=== PATIENT | female | born 1985 | race Caucasian/White ===

== ENCOUNTER 2018-03-09 11:16 | Emergency (ER) | payer OTHER ==
--- OUTSIDE RECORDS SUMMARY | 2018-03-09 11:18 | XMS REPORT ---
:1985 Author Organization eClinicalWorks Care Team Providers Name Role Phone Ro Kelly Provider Role Unavailable Allergies, Adverse Reactions, Alerts Substance Reaction Event Type Rocephin anaphylaxis Drug Allergy Problems Problem Type Condition Code Onset Dates Condition Status Problem Cough R05 Active Assessment Post depression F53 Active Problem Post depression F53 Active Medications Medication Code Code Instructions Start End Status Dosage System Date Date Zoloft NDC 0 Active not defined Sertraline HCl [facility] [id number] 100 MG Orally January 28, Active 1 tablet Once a day 2017 Results No Known Results Summary Purpose eClinicalWorks Submission
[2018-03-09] MEDS ORDERED: NA CHLORIDE 0.9% 1,000 ML ONE (14:01)
[2018-03-09 14:20] LABS: Absolute Lymphocytes (CBC) 1.9 K/uL (0.7-4.9); Absolute Monocytes 0.5 K/uL (0.1-1.3); Absolute Neutrophil 4.8 K/uL (1.8-8.0); Basophils % 0.5 % (0-1.3); Eosinophils % 2.5 % (0-4.4); Hematocrit 33.3 % (36.0-45.0); Lymphocytes % 25.9 % (15.3-44.8); MCH 28.3 pg (27.0-35.0); MPV 8.9 fL (7.6-11.3); Monocytes % 7.4 % (3.3-12.3); RBC Red Blood Cell Count 3.92 M/uL (3.86-4.86)
[2018-03-09 14:24] LABS: Bicarbonate 28 mEq/L (21-31); Glucose Level 92 mg/dL (65-120); Potassium 3.6 mEq/L (3.6-5.0); Sodium Level 135 mEq/L (135-145)
[2018-03-09 14:25] LABS: BUN Blood Urea Nitrogen 8 mg/dL (6-20)
--- NOTE | 2018-03-09 15:20 | RAD REPORT ---
EXAM DESCRIPTION: US - Transvaginal Study Probe - 03/09/2018 2:13 pm CLINICAL HISTORY: Recent miscarriage, continued vaginal bleeding COMPARISON: None. TECHNIQUE: Endovaginal sonography was performed. FINDINGS: No left ovarian or adnexal suspicious findings. Right ovary not clearly defined. No right adnexal mass. No blood or free fluid in the cul-de-sac. Uterus is 8.8 x 5.1 x 5.0 cm. Hemorrhagic material is present within the cervix and lower uterine seg ment. No focal endometrial finding to suspect retained products of conception. IMPRESSION: Hemorrhagic material in the lower uterus is identifiable. Retained products of conceptio n are not suspected. No suspicious adnexal finding.
--- NOTE | 2018-03-09 16:18 | EDPHYS ---
Physician Documentation [facility] Name: Diana Siddiqi Age: 33 yrs Sex: Female : 1985 Arrival Date: 03/09/2018 Time: 11:19 Bed 24 Private MD: Melida Kelly ED Physician Jose R Ma HPI: 03/09 13:52 This 33 yrs old Female presents to ER via Ambulatory with complaints of brisa Vaginal Bleeding. 13:52 This 33 yrs old Female presents to ER via Ambulatory with complaints of brisa Vaginal Bleeding. 13:52 The patient presents with vaginal bleeding that is. Onset: The symptoms/episode brisa began/occurred 3 day(s) ago. Modifying factors: The symptoms are alleviated by nothing, the symptoms are aggravated by nothing. Associated signs and symptoms: The patient has no apparent associated signs or symptoms. Severity of symptoms: At their worst the symptoms were mild, moderate, in the emergency department the symptoms are unchanged. The patient is sexually active. The patient has experienced similar episodes in the past, a few times. 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 - Social history:: Smoking status: Patient/guardian denies using tobacco. - Ebola Screening: : No symptoms or risks identified at this time. - Family history:: not pertinent. ROS: 13:54 Constitutional: Negative for fever, chills, and weight loss, Eyes: Negative for injury, brisa pain, redness, and discharge, ENT: Negative for injury, pain, and discharge, Neck: Negative for injury, pain, and swelling, Cardiovascular: Negative for chest pain, palpitations, and edema, Respiratory: Negative for shortness of breath, cough, wheezing, and pleuritic chest pain, Abdomen/GI: Negative for abdominal pain, nausea, vomiting, diarrhea, and constipation, Back: Negative for injury and pain, MS/Extremity: Negative for injury and deformity, Skin: Negative for injury, rash, and discoloration, Neuro: Negative for headache, weakness, numbness, tingling, and seizure, Psych: Negative for depression, anxiety, suicide ideation, homicidal ideation, and hallucinations, Allergy/Immunology: Negative for hives, rash, and allergies, Endocrine: Negative for neck swelling, polydipsia, polyuria, polyphagia, and marked weight changes, Hematologic/Lymphatic: Negative for swollen nodes, abnormal bleeding, and unusual bruising. 13:54 : Positive for pelvic pain, vaginal bleeding. Exam: 13:54 Constitutional: This is a well developed, well nourished patient who is awake, alert, brisa and in no acute distress. Head/Face: Normocephalic, atraumatic. Eyes: Pupils equal round and reactive to light, extra-ocular motions intact. Lids and lashes normal. Conjunctiva and sclera are non-icteric and not injected. Cornea within normal limits. Periorbital areas with no swelling, redness, or edema. ENT: Nares patent. No nasal discharge, no septal abnormalities noted. Tympanic membranes are normal and external auditory canals are clear. Oropharynx with no redness, swelling, or masses, exudates, or evidence of obstruction, uvula midline. Mucous membranes moist. Neck: Trachea midline, no thyromegaly or masses palpated, and no cervical lymphadenopathy. Supple, full range of motion without nuchal rigidity, or vertebral point tenderness. No Meningismus. Chest/axilla: Normal chest wall appearance and motion. Nontender with no deformity. No lesions are appreciated. Cardiovascular: Regular rate and rhythm with a normal S1 and S2. No gallops, murmurs, or rubs. Normal PMI, no JVD. No pulse deficits. Respiratory: Lungs have equal breath sounds bilaterally, clear to auscultation and percussion. No rales, rhonchi or wheezes noted. No increased work of breathing, no retractions or nasal flaring. Abdomen/GI: Soft, non-tender, with normal bowel sounds. No distension or tympany. No guarding or rebound. No evidence of tenderness throughout. Back: No spinal tenderness. No costovertebral tenderness. Full range of motion. Female : Normal external genitalia. Skin: Warm, dry with normal turgor. Normal color with no rashes, no lesions, and no evidence of cellulitis. MS/ Extremity: Pulses equal, no cyanosis. Neurovascular intact. Full, normal range of motion. Neuro: Awake and alert, GCS 15, oriented to person, place, time, and situation. Cranial nerves II-XII grossly intact. Motor strength 5/5 in all extremities. Sensory grossly intact. Cerebellar exam normal. Normal gait. Psych: Awake, alert, with orientation to person, place and time. Behavior, mood, and affect are within normal limits. Vital Signs: 11:37 BP 116 / 80; Pulse 88; Resp 16; Temp 99.2; Pulse Ox 100% ; Pain 3/10; hb 13:45 BP 113 / 67; Pulse 72; Resp 16; Pulse Ox 100% on R/A; kr2 16:26 BP 110 / 68; Pulse 80; Resp 16; Pulse Ox 100% on R/A; kr2 MDM: 13:20 Patient medically screened. [facility] 13:55 Data reviewed: vital signs, nurses notes, lab test result(s), radiologic studies, brisa ultrasound. 03/09 13:52 Order name: Quantitative Hcg; Complete Time: 16:10 [facility] 03/09 13:52 Order name: Abo/rh Typing; Complete Time: 16:10 [facility] 03/09 13:52 Order name: Basic Metabolic Panel; Complete Time: 16:10 [facility] 03/09 13:52 Order name: CBC with Diff; Complete Time: 16:10 [facility] 03/09 16:24 Order name: Urine Dipstick--Ancillary (enter results) 03/09 16:24 Order name: Urine --Ancillary (enter results) 03/09 13:52 Order name: Urine Test (obtain specimen); Complete Time: 14:08 [facility] 03/09 13:52 Order name: IV Saline Lock; Complete Time: 14:08 [facility] 03/09 13:52 Order name: Labs collected and sent; Complete Time: 14:08 [facility] 03/09 13:52 Order name: NPO; Complete Time: 14:08 [facility] 03/09 13:52 Order name: Urine Dipstick-Ancillary (obtain specimen); Complete Time: 14:08 [facility] 03/09 13:52 Order name: US Transvaginal Study (Probe); Complete Time: 16:10 [facility] Administered Medications: 14:24 Drug: NS 0.9% 1000 ml Route: IV; Rate: 1 bolus; Site: right antecubital; kr2 16:27 Follow up: Response: No adverse reaction; IV Status: Completed infusion kr2 Disposition: 03/09/18 16:18 Discharged to Home. Impression: Threatened . - Condition is Stable. - Discharge Instructions: Threatened Miscarriage, Threatened Miscarriage, [id number], Pelvic Rest. - Prescriptions for Vitamin 27- 0.8 mg Oral Tablet - take 1 tablet by ORAL route once daily; 30 tablet. - Medication Reconciliation Form, Thank You Letter, Antibiotic Education, Prescription Opioid Use form. - Follow up: Private Physician; When: 2 - 3 days; Reason: Recheck today's complaints, Continuance of care, Re-evaluation by your physician. Follow up: Macy Prince MD; When: 1 - 2 days; Reason: Recheck today's complaints, Continuance of care, Re-evaluation by your physician. - Problem is new. - Symptoms have improved. Signatures: Dispatcher [employer] EDMS Jose R Ma MD MD cha Baxter, Heather, RN RN Joseline Haile RN RN kr2 Corrections: (The following items were deleted from the chart) 16:28 16:18 03/09/2018 16:18 Discharged to Home. Impression: Threatened . Condition kr2 is Stable. Forms are Medication Reconciliation Form, Thank You Letter, Antibiotic Education, Prescription Opioid Use. Follow up: Private Physician; When: 2 - 3 days; Reason: Recheck today's complaints, Continuance of care, Re-evaluation by your physician. Follow up: Macy Prince; When: 1 - 2 days; Reason: Recheck today's complaints, Continuance of care, Re-evaluation by your physician. Problem is new. Symptoms have improved. brisa
--- NOTE | 2018-03-09 16:18 | ER ---
Nurse's Notes [facility] Name: Diana Siddiqi Age: 33 yrs Sex: Female : 1985 Arrival Date: 03/09/2018 Time: 11:19 Bed 24 Private MD: Melida Kelly Diagnosis: Threatened Presentation: 03/09 11:35 Presenting complaint: Patient states: I had a miscarriage a week ago, but the last 3 hb days the bleeding has become heavy and bright red with large clots. Transition of care: patient was not received from another setting of care. Onset of symptoms is unknown. Risk Assessment: Do you want to hurt yourself or someone else? Patient reports no desire to harm self or others. Care prior to arrival: None. 11:35 Method Of Arrival: Ambulatory hb 11:35 Acuity: SEAN 3 hb 14:12 Initial Sepsis Screen: Does the patient meet any 2 criteria? No. Patient's initial kr2 sepsis screen is negative. Does the patient have a suspected source of infection? No. Patient's initial sepsis screen is negative. 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 - Social history:: Smoking status: Patient/guardian denies using tobacco. - Ebola Screening: : No symptoms or risks identified at this time. - Family history:: not pertinent. Screenin:10 Abuse screen: Denies threats or abuse. Denies injuries from another. Nutritional kr2 screening: No deficits noted. Tuberculosis screening: No symptoms or risk factors identified. Fall Risk None identified. Assessment: 13:20 General: Appears in no apparent distress. comfortable, well groomed, well developed, kr2 well nourished, Behavior is calm, cooperative, appropriate for age. Pain: Denies pain. Neuro: Level of Consciousness is awake, alert, obeys commands, Oriented to person, place, time, situation, Appropriate for age. Cardiovascular: Capillary refill < 3 seconds in bilateral fingers Patient's skin is warm and dry. Respiratory: Airway is patent. GI: Abdomen is flat, non-distended. : Urine is clear, Reports vaginal bleeding that is bright red, heavy flow. EENT: Oral mucosa is moist. Derm: Skin is intact, is healthy with good turgor, Skin is pink, warm \T\ dry. Musculoskeletal: Circulation, motion, and sensation intact. 14:30 Reassessment: Patient appears in no apparent distress at this time. Patient and/or kr2 family updated on plan of care and expected duration. Pain level reassessed. Patient is alert, oriented x 3, equal unlabored respirations, skin warm/dry/pink. Patient denies pain at this time. 15:30 Reassessment: Patient appears in no apparent distress at this time. Patient and/or kr2 family updated on plan of care and expected duration. Pain level reassessed. Patient is alert, oriented x 3, equal unlabored respirations, skin warm/dry/pink. Patient denies pain at this time. 16:26 Reassessment: Patient appears in no apparent distress at this time. Patient and/or kr2 family updated on plan of care and expected duration. Pain level reassessed. Patient is alert, oriented x 3, equal unlabored respirations, skin warm/dry/pink. Patient denies pain at this time. Vital Signs: 11:37 BP 116 / 80; Pulse 88; Resp 16; Temp 99.2; Pulse Ox 100% ; Pain 3/10; hb 13:45 BP 113 / 67; Pulse 72; Resp 16; Pulse Ox 100% on R/A; kr2 16:26 BP 110 / 68; Pulse 80; Resp 16; Pulse Ox 100% on R/A; kr2 ED Course: 11:19 Patient arrived in ED. as 11:19 Melida Kelly is Private Physician. as 11:37 Triage completed. hb 11:38 Arm band placed on left wrist. hb 13:19 Joseline Haile, DANIELLA is Primary Nurse. kr2 13:20 Jose R Ma MD is Attending Physician. brisa 13:45 Patient has correct armband on for positive identification. Bed in low position. Call kr2 light in reach. Side rails up X 1. Pulse ox on. NIBP on. Door closed. Head of bed elevated. 14:00 Inserted saline lock: 22 gauge in right antecubital area, using aseptic technique. kr2 Blood collected. 14:12 No provider procedures requiring assistance completed. kr2 14:13 US Transvaginal Study (Probe) In Process Unspecified. EDTX 16:16 Macy Pirnce MD is Referral Physician. [facility] 16:27 IV discontinued, intact, bleeding controlled, No redness/swelling at site. Pressure kr2 dressing applied. Administered Medications: 14:24 Drug: NS 0.9% 1000 ml Route: IV; Rate: 1 bolus; Site: right antecubital; kr2 16:27 Follow up: Response: No adverse reaction; IV Status: Completed infusion kr2 Outcome: 16:18 Discharge ordered by . [facility] 16:26 Discharged to home ambulatory. kr2 16:26 Condition: good 16:26 Discharge instructions given to patient, Instructed on discharge instructions, follow up and referral plans. medication usage, Demonstrated understanding of instructions, follow-up care, medications, Prescriptions given X 1. 16:28 Patient left the ED. kr2 Signatures: Dispatcher [employer] EDTX Jose R Ma MD MD cha Martinez, Amelia as Luzma Wu RN RN Joseline Haile, DANIELLA RN kr2 Corrections: (The following items were deleted from the chart) 11:37 11:37 BP 116 / 80; Pulse 88bpm; Resp 16bpm; Pulse Ox 100%; Temp 99.2F; hb hb
[2018-03-09 16:26] LABS: Urine Blood 2+ (NEG); Urine Glucose NEGATIVE (NEG); Urine Protein 1+ (NEG); Urine Specific Gravity 1.025 (1.005-1.030); Urine pH 6.5 (5.0-7.0)
[2018-03-09 17:45] VITALS: TEMP 99.2; O2SAT 100
[2018-03-09 17:47] VITALS: BP 110/68
== END 2018-03-09 16:28 | disposition home or self-care (01) ==
LOC: ER 11:16
DX: O20.0 Threatened abortion (principal); Z88.8 Allergy status to other drugs, medicaments and biological substances
CPT/HCPCS: 36415; 76830; 80048; 81003; 81025; 84702; 85025; 86900; 86901; 96360; 96361; 99284; J7030

== ENCOUNTER 2018-03-10 15:49 | Emergency (ER) | payer OTHER ==
--- OUTSIDE RECORDS SUMMARY | 2018-03-10 15:51 | XMS REPORT ---
[...] NDC 0 Active not defined Sertraline HCl [facility] [id number] 100 MG Orally January 28, Active 1 tablet Once a day 2017 Results No Known Results Summary Purpose eClinicalWorks Submission
[2018-03-10] MEDS ORDERED: MORPHINE 4 MG/ML SYR ONE (17:09)
[2018-03-10] MEDS ORDERED: ONDANSETRON 4 MG/2 ML VIAL ONE (17:09)
[2018-03-10 17:28] LABS: Urine Blood 3+ (NEG); Urine Glucose NEGATIVE (NEG); Urine Protein 1+ (NEG); Urine Specific Gravity 1.025 (1.005-1.030); Urine pH 5.5 (5.0-7.0)
--- NOTE | 2018-03-10 17:45 | RAD REPORT ---
EXAM DESCRIPTION: US - Transvaginal Study Probe - 03/10/2018 5:19 pm CLINICAL HISTORY: Pelvic pain status post miscarriage approximately 1 week ago COMPARISON: March 09, 2018 ultrasound FINDINGS: The endometrium is not well delineated but measures approximately 10 millimeters. It conta ins heterogeneous material which extends into the cervical canal. The material does not demonstrate v ascular flow . The absence of blood flow does not exclude retained products of conception The ovaries are normal in size and echotexture. No significant free fluid is seen. IMPRESSION: The endometrium measures approximately 10 millimeters and contains heterogeneous materia l. This may all represent blood. However, retained products of conception can also have this appearan ce
[2018-03-10 17:59] LABS: Absolute Lymphocytes (CBC) 1.3 K/uL (0.7-4.9); Absolute Monocytes 0.7 K/uL (0.1-1.3); Absolute Neutrophil 13.3 K/uL (1.8-8.0); Basophils % 0.2 % (0-1.3); Hematocrit 31.6 % (36.0-45.0); Lymphocytes % 8.4 % (15.3-44.8); MCH 27.7 pg (27.0-35.0); MPV 9.3 fL (7.6-11.3); Monocytes % 4.2 % (3.3-12.3); RBC Red Blood Cell Count 3.72 M/uL (3.86-4.86)
[2018-03-10 18:01] LABS: Bicarbonate 26 mEq/L (21-31); Glucose Level 101 mg/dL (65-120); Potassium 3.4 mEq/L (3.6-5.0); Sodium Level 136 mEq/L (135-145)
[2018-03-10 18:02] LABS: BUN Blood Urea Nitrogen 9 mg/dL (6-20)
[2018-03-10 18:13] LABS: Urine Specific Gravity 1.025 (1.005-1.030)
[2018-03-10] MEDS ORDERED: FENTANYL CITR 100 MCG/2 ML ONE (20:02)
[2018-03-10] MEDS ORDERED: KETOROLAC 30 MG/ML INJ ONE (21:46)
--- NOTE | 2018-03-10 21:48 | EDPHYS ---
Physician Documentation [facility] Name: Diana Siddiqi Age: 33 yrs Sex: Female : 1985 Arrival Date: 03/10/2018 Time: 15:52 Bed 13 Private MD: Melida Kelly ED Physician Boaz Woods HPI: 03/10 16:46 This 33 yrs old Female presents to ER via Ambulatory with complaints of jmm Pelvic pain. 16:47 Onset: The symptoms/episode began/occurred acutely, 1 day(s) ago. Modifying factors: jmm The symptoms are alleviated by nothing, the symptoms are aggravated by nothing. Associated signs and symptoms: Pertinent positives: pelvic pain, bleeding. Patient was evaluated in the ED yesterday and diagnosed with a miscarriage. Patient complains of worsening pelvic pain and vaginal bleeding. MEDICAL RECORD CODER is Dr. Prince. 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 - Social history:: Smoking status: Patient/guardian denies using tobacco. - Ebola Screening: : No symptoms or risks identified at this time. ROS: 16:47 Constitutional: Negative for fever, chills, and weight loss, Cardiovascular: Negative jmm for chest pain, palpitations, and edema, Respiratory: Negative for shortness of breath, cough, wheezing, and pleuritic chest pain, Abdomen/GI: Negative for abdominal pain, nausea, vomiting, diarrhea, and constipation. 16:47 : Positive for pelvic pain, vaginal bleeding. 16:47 MS/extremity: Negative for pain. 16:47 Skin: Negative for rash. 16:47 All other systems are negative. Exam: 16:47 Head/Face: atraumatic. Chest/axilla: Normal chest wall appearance and motion. jmm Nontender with no deformity. No lesions are appreciated. Cardiovascular: Regular rate and rhythm. No gallops, murmurs, or rubs. Full/Equal distal pulses. Respiratory: Lungs have equal breath sounds bilaterally, clear to auscultation. No rales, rhonchi or wheezes noted. No increased work of breathing, no retractions or nasal flaring. Abdomen/GI: Soft, non-tender, with normal bowel sounds. No distension or tympany. No guarding or rebound. No evidence of tenderness throughout. 16:47 Constitutional: The patient appears alert, awake, anxious, uncomfortable. 16:47 : Pelvic Exam: External exam: is normal, Speculum exam: mild bleeding, blood clots in vaginal vault, os that is open. 16:47 Musculoskeletal/extremity: ROM: intact in all extremities. 16:47 Skin: Appearance: Color: normal in color. 16:47 Neuro: Orientation: is normal, Mentation: is normal, Memory: is normal, Gait: is steady. 16:47 Psych: Behavior/mood is pleasant, cooperative. Vital Signs: 16:01 BP 105 / 76; Pulse 101; Resp 22; Temp 98.9; Pulse Ox 99% ; Weight 79.38 kg; Height 5 sv ft. 5 in. (165.10 cm); Pain 10/10; 17:00 BP 115 / 78; Pulse 91; Resp 19; Pulse Ox 100% on R/A; rb1 18:32 BP 105 / 71; Pulse 84; Resp 20; Pulse Ox 100% on R/A; mh5 19:30 BP 115 / 80; Pulse 94; Resp 17 S; Pulse Ox 100% on R/A; bs1 20:30 BP 107 / 73; Pulse 89; Resp 16; Pulse Ox 99% on R/A; bs1 21:30 BP 106 / 73; Pulse 85; Resp 17; Temp 98.1(O); Pulse Ox 99% on R/A; Pain 4/10; bs1 16:01 Body Mass Index 29.12 (79.38 kg, 165.10 cm) sv MDM: 16:44 Patient medically screened. [facility] 21:45 Data reviewed: vital signs, nurses notes, lab test result(s), radiologic studies, [facility] ultrasound. Counseling: I had a detailed discussion with the patient and/or guardian regarding: the historical points, exam findings, and any diagnostic results supporting the discharge/admit diagnosis, lab results, radiology results, the need for outpatient follow up, to return to the emergency department if symptoms worsen or persist or if there are any questions or concerns that arise at home. Response to treatment: the patient's symptoms have mildly improved after treatment. Physician consultation: Macy Prince MD and will see patient in office. 03/10 16:45 Order name: Abo/rh Typing; Complete Time: 18:43 [facility] 03/10 16:45 Order name: Basic Metabolic Panel; Complete Time: 18:43 [facility] 03/10 16:45 Order name: CBC with Diff; Complete Time: 18:43 [facility] 03/10 17:26 Order name: Urine Dipstick--Ancillary (enter results); Complete Time: 17:47 ag 03/10 17:29 Order name: Urine --Ancillary (enter results); Complete Time: 18:43 ag 03/10 18:44 Order name: HCG-Quantitative; Complete Time: 20:29 [facility] 03/10 16:45 Order name: IV Saline Lock; Complete Time: 17:41 [facility] 03/10 16:45 Order name: Labs collected and sent; Complete Time: 17:42 [facility] 03/10 16:58 Order name: Transvaginal Study Probe; Complete Time: 17:47 [facility] 03/10 16:45 Order name: NPO; Complete Time: 17:42 [facility] 03/10 16:45 Order name: Urine Dipstick-Ancillary (obtain specimen); Complete Time: 17:43 [facility] 03/10 19:12 Order name: Pelvic Exam Setup; Complete Time: 20:29 jm Administered Medications: 17:35 Drug: morphine 4 mg Route: IVP; Site: right antecubital; rb1 18:00 Follow up: Response: No adverse reaction; Pain is decreased rb1 17:35 Drug: Zofran 4 mg Route: IVP; Site: right antecubital; rb1 18:00 Follow up: Response: No adverse reaction; Nausea is decreased rb1 20:12 Drug: fentaNYL (PF) 50 mcg Route: IVP; Site: right antecubital; bs1 20:29 Follow up: Response: No adverse reaction bs1 21:46 Drug: Ketorolac 30 mg Route: IVP; Site: right antecubital; bs1 22:01 Follow up: Response: No adverse reaction bs1 Disposition: 03/10/18 21:47 Discharged to Home. Impression: Incomplete . - Condition is Stable. - Discharge Instructions: Incomplete Miscarriage. - Prescriptions for Tylenol- Codeine #3 300-30 mg Oral Tablet - take 1 tablet by ORAL route every 6 hours As needed; 12 tablet. - Medication Reconciliation Form, Thank You Letter, Antibiotic Education, Prescription Opioid Use form. - Follow up: Macy Prince MD; When: 1 - 2 days; Reason: Continuance of care, Re-evaluation by your physician. - Notes: Please follow up with your OBGYN in 1 to 2 days for reevaluation. Please return to the ED if you develop increased pain, increased bleeding, weakness, or any other concerning symptoms. Addendum: 03/12/2018 07:02 Co-signature as Attending Physician, Boaz Woods MD. r n Signatures: Dispatcher [employer] [facility] Ashley Gamble, RN RN Edy Dias PA PA jmm Nieto, Roman, MD MD rn Barber, Rebecca RN RN Shelby Balbuena RN RN bs1 Corrections: (The following items were deleted from the chart) 03/10 16:58 16:51 Pelvis Complete+US.RAD.BRZ ordered. [facility] 22:03 21:47 03/10/2018 21:47 Discharged to Home. Impression: Incomplete . Condition bs1 is Stable. Forms are Medication Reconciliation Form, Thank You Letter, Antibiotic Education, Prescription Opioid Use. Follow up: Macy Prince; When: 1 - 2 days; Reason: Continuance of care, Re-evaluation by your physician. [facility]
--- NOTE | 2018-03-10 21:48 | ER ---
Nurse's Notes [facility] Name: Diana Siddiqi Age: 33 yrs Sex: Female : 1985 Arrival Date: 03/10/2018 Time: 15:52 Bed 13 Private MD: Melida Kelly Diagnosis: Incomplete Presentation: 03/10 15:59 Presenting complaint: Patient states: RLQ pain about an hour ago. c/o sv nausea/diaphoresis. Transition of care: patient was not received from another setting of care. Onset of symptoms was March 10, 2018. Care prior to arrival: None. 15:59 Method Of Arrival: Ambulatory sv 15:59 Acuity: SEAN 3 sv 16:01 Note Pt stated once in the exam room that she had a miscarriage on Friday and has had sv vaginal bleeding. Pt was seen here. 16:05 Risk Assessment: Do you want to hurt yourself or someone else? Patient reports no rb1 desire to harm self or others. Initial Sepsis Screen: Does the patient meet any 2 criteria? No. Patient's initial sepsis screen is negative. Does the patient have a suspected source of infection? No. Patient's initial sepsis screen is negative. 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 - Social history:: Smoking status: Patient/guardian denies using tobacco. - Ebola Screening: : No symptoms or risks identified at this time. Screenin:05 Abuse screen: Denies threats or abuse. Nutritional screening: No deficits noted. rb1 Tuberculosis screening: No symptoms or risk factors identified. Fall Risk None identified. Assessment: 16:05 General: Appears uncomfortable, Behavior is calm, cooperative, Denies fever. Pain: rb1 Complains of pain in abdomen Pain currently is 10 out of 10 on a pain scale. Neuro: Level of Consciousness is awake, alert, obeys commands, Oriented to person, place, time, situation. Cardiovascular: Capillary refill < 3 seconds is brisk in bilateral fingers. Respiratory: Airway is patent Respiratory effort is even, unlabored, Respiratory pattern is regular, symmetrical. GI: No signs and/or symptoms were reported involving the gastrointestinal system. : Reports vaginal bleeding that is bright red. Derm: Skin is pink, warm \T\ dry. 17:00 Reassessment: Patient appears in no apparent distress at this time. No changes from rb1 previously documented assessment. 18:00 Reassessment: Patient appears in no apparent distress at this time. Patient and/or rb1 family updated on plan of care and expected duration. Pain level reassessed. Patient is alert, oriented x 3, equal unlabored respirations, skin warm/dry/pink. Patient states symptoms have improved. 19:06 Reassessment: Report received from DANIELLA Banuelos. bs1 19:06 General: Appears uncomfortable, Behavior is cooperative, anxious. Pain: Complains of bs1 pain in abdomen. Neuro: Level of Consciousness is awake, alert, obeys commands, Oriented to person, place, time, situation, Appropriate for age. Cardiovascular: Denies chest pain, shortness of breath, Heart tones S1 S2 present Capillary refill < 3 seconds is brisk in bilateral fingers toes Patient's skin is warm and dry. Respiratory: Airway is patent Trachea midline Respiratory effort is even, unlabored, Respiratory pattern is regular, symmetrical, Breath sounds are clear bilaterally. GI: Abdomen is round Bowel sounds present X 4 quads. Reports lower abdominal pain, upper abdominal pain, nausea, Patient currently denies bloody stool. : Reports vaginal bleeding that is bright red. Derm: Skin is intact, Skin is pink, warm \T\ dry. 20:45 Reassessment: No changes from previously documented assessment. Patient and/or family bs1 updated on plan of care and expected duration. Pain level reassessed. Patient is alert, oriented x 3, equal unlabored respirations, skin warm/dry/pink. 22:00 Reassessment: Patient appears in no apparent distress at this time. Patient and/or bs1 family updated on plan of care and expected duration. Pain level reassessed. Patient is alert, oriented x 3, equal unlabored respirations, skin warm/dry/pink. Patient states feeling better. Vital Signs: 16:01 BP 105 / 76; Pulse 101; Resp 22; Temp 98.9; Pulse Ox 99% ; Weight 79.38 kg; Height 5 sv ft. 5 in. (165.10 cm); Pain 10/10; 17:00 BP 115 / 78; Pulse 91; Resp 19; Pulse Ox 100% on R/A; rb1 18:32 BP 105 / 71; Pulse 84; Resp 20; Pulse Ox 100% on R/A; mh5 19:30 BP 115 / 80; Pulse 94; Resp 17 S; Pulse Ox 100% on R/A; bs1 20:30 BP 107 / 73; Pulse 89; Resp 16; Pulse Ox 99% on R/A; bs1 21:30 BP 106 / 73; Pulse 85; Resp 17; Temp 98.1(O); Pulse Ox 99% on R/A; Pain 4/10; bs1 16:01 Body Mass Index 29.12 (79.38 kg, 165.10 cm) sv ED Course: 15:52 Patient arrived in ED. mr 15:52 Kimberley Kellya is Private Physician. mr 15:59 Triage completed. sv 16:00 Arm band placed on right wrist. sv 16:05 Patient has correct armband on for positive identification. Bed in low position. Call rb1 light in reach. Side rails up X 1. Pulse ox on. NIBP on. Warm blanket given. 16:19 Lakisha Grier, DANIELLA is Primary Nurse. rb1 16:27 Edy Valero PA is PHCP. [facility] 16:27 Boaz Woods MD is Attending Physician. [facility] 17:19 Transvaginal Study Probe In Process Unspecified. EDMS 17:35 Inserted saline lock: 22 gauge in right antecubital area, using aseptic technique. rb1 Blood collected. 19:00 Report given to DANIELLA Ryan. rb1 20:00 Assist provider with pelvic exam: Set up pelvic tray. Performed by Edy CLAUDIO bs1 Patient tolerated well. 20:00 IV discontinued, bleeding controlled, No redness/swelling at site. Pressure dressing bs1 applied. 21:17 called and connected with SHANON Snow for pt consultation. eb 21:46 Macy Prince MD is Referral Physician. jmm Administered Medications: 17:35 Drug: morphine 4 mg Route: IVP; Site: right antecubital; rb1 18:00 Follow up: Response: No adverse reaction; Pain is decreased rb1 17:35 Drug: Zofran 4 mg Route: IVP; Site: right antecubital; rb1 18:00 Follow up: Response: No adverse reaction; Nausea is decreased rb1 20:12 Drug: fentaNYL (PF) 50 mcg Route: IVP; Site: right antecubital; bs1 20:29 Follow up: Response: No adverse reaction bs1 21:46 Drug: Ketorolac 30 mg Route: IVP; Site: right antecubital; bs1 22:01 Follow up: Response: No adverse reaction bs1 Outcome: 21:47 Discharge ordered by MD. mcdermott 22:00 Discharged to home ambulatory. bs1 22:00 Condition: stable 22:00 Discharge instructions given to patient, Instructed on discharge instructions, follow up and referral plans. medication usage, Demonstrated understanding of instructions, follow-up care, medications, Prescriptions given X 1. 22:03 Patient left the ED. bs1 Signatures: Dispatcher [employer] EDAshley Osman RN RN Edy Valero PA PA jmm Rivera, Maria mr Barber, Rebecca, RN RN rb1 Martinez, Maria Shelby Guadarrama RN RN bs1 Kiki Middleton
[2018-03-10 22:16] VITALS: O2SAT 99
[2018-03-10 22:17] VITALS: BP 106/73; TEMP 98.1
== END 2018-03-10 22:03 | disposition home or self-care (01) ==
LOC: ER 15:49
DX: O03.4 Incomplete spontaneous abortion without complication (principal); Z88.8 Allergy status to other drugs, medicaments and biological substances
CPT/HCPCS: 36415; 76830; 80048; 81003; 81025; 84702; 85025; 86900; 86901; 96374; 96375; 99284; J2405; J3010

== ENCOUNTER 2018-03-24 18:05 | Observation (INO) | payer BC, OTHER, SELFPAY ==
--- OUTSIDE RECORDS SUMMARY | 2018-03-24 18:07 | XMS REPORT ---
[...] NDC 0 Active not defined Sertraline HCl [facility] [id number] 100 MG Orally January 28, Active 1 tablet Once a day 2017 Results No Known Results Summary Purpose eClinicalWorks Submission
[2018-03-24] MEDS ORDERED: NA CHLORIDE 0.9% 1,000 ML ONE ×2 (18:14→19:29)
[2018-03-24 18:32] LABS: Absolute Lymphocytes (CBC) 1.6 K/uL (0.7-4.9); Absolute Monocytes 0.4 K/uL (0.1-1.3); Absolute Neutrophil 1.8 K/uL (1.8-8.0); Basophils % 0.9 % (0-1.3); Eosinophils % 3.7 % (0-4.4); Hematocrit 21.4 % (36.0-45.0); Lymphocytes % 40.1 % (15.3-44.8); MCH 26.6 pg (27.0-35.0); MCV 82.5 fL (80-100); MPV 8.7 fL (7.6-11.3); Monocytes % 9.4 % (3.3-12.3); Protime INR 1.04; RBC Red Blood Cell Count 2.59 M/uL (3.86-4.86)
[2018-03-24] MEDS ORDERED: METHYLERGONOVINE 0.2MG/ML AMP IM ONE ×2 (18:32→21:19)
[2018-03-24 18:50] LABS: Potassium 3.6 mmol/L (3.5-5.1)
--- NOTE | 2018-03-24 19:46 | RAD REPORT ---
EXAM DESCRIPTION: US - Transvaginal Study Probe - 03/24/2018 7:04 pm CLINICAL HISTORY: Vaginal bleeding, abnormal endovaginal ultrasound March 10 COMPARISON: Ultrasound March 10 TECHNIQUE: Endovaginal sonography was performed. FINDINGS: Endometrium has increased in thickness now measuring approximately 24 mm. There is heterog eneity throughout the endometrium. In the midportion of the endometrial cavity an approximately 2 mel timeter area of more hypoechoic material is present. Movement is identifiable within this area believ ed to be old hemorrhagic material. No abnormality seen that is suspected to be retained tissue. Retained placental tissue is not excluded but not suspected. Myometrium is heterogeneous but no discrete myometrial mass seen. Small cysts or follicles are seen on both ovaries. Doppler evaluation shows normal blood flow within the ovarian stroma. No suspicious adnexal finding. No abnormal fluid or blood in the cul-de-sac. IMPRESSION: Diffusely heterogeneous and thickened endometrial stripe is present. This has increased from approximately 10 mm in thickness to the current 24 mm. Hemorrhagic material is identifiable in addition to the endometrial tissue. Retained tissue is not suspected. Retained placental tissue is not suspected but not excluded. No ovarian, adnexal or cul-de-sac abnormalities.
--- NOTE | 2018-03-24 19:53 | ER ---
Nurse's Notes [facility] Name: Diana Siddiqi Age: 33 yrs Sex: Female : 1985 Arrival Date: 03/24/2018 Time: 18:09 Bed 2 Private MD: Diagnosis: Shock following incomplete spontaneous Presentation: 03/24 18:00 Presenting complaint: Patient states: Reportedly had a miscarriage 3 weeks ago and has ss intermittent vaginal bleeding since that has gotten heavier today. EMS reports that patient lost approx 1 Liter of blood in toilet just prior to arrival to patient's home. Pt has a follow up OB appointment tomorrow with Dr. Prince. Transition of care: patient was not received from another setting of care. Onset of symptoms was March 03, 2018. Risk Assessment: Do you want to hurt yourself or someone else? Patient reports no desire to harm self or others. Initial Sepsis Screen: Does the patient meet any 2 criteria? No. Patient's initial sepsis screen is negative. Does the patient have a suspected source of infection? No. Patient's initial sepsis screen is negative. Care prior to arrival: None. 18:00 Method Of Arrival: EMS: [facility] ss 18:00 Acuity: SEAN 1 ss Historical: - Allergies: 18:21 ceftriaxone; ss - PMHx: 18:21 Post depression; ss - PSHx: 18:21 ; Cholecystectomy; ss - Immunization history:: Adult Immunizations unknown. - Social history:: The patient lives at home, Smoking status: Patient/guardian denies using tobacco. - Ebola Screening: : Patient negative for fever greater than or equal to 101.5 degrees Fahrenheit, and additional compatible Ebola Virus Disease symptoms Patient denies exposure to infectious person Patient denies travel to an Ebola-affected area in the 21 days before illness onset. Screenin:10 Abuse screen: Denies threats or abuse. Denies injuries from another. Nutritional sg screening: No deficits noted. Tuberculosis screening: No symptoms or risk factors identified. Never had TB. Fall Risk None identified. Assessment: 18:10 General: Appears in no apparent distress. comfortable, well groomed, well developed, sg well nourished, Behavior is calm, cooperative, appropriate for age. Pain: Complains of pain in pelvis Quality of pain is described as aching. Neuro: No deficits noted. Cardiovascular: Heart tones S1 S2 present Capillary refill is sluggish in bilateral fingers Chest pain is denied. Respiratory: Airway is patent Respiratory effort is even, unlabored, Respiratory pattern is regular, symmetrical, Breath sounds are clear. GI: Abdomen is round non-distended. : Reports vaginal bleeding that is bright red, heavy flow since intermittent for about 3 days. EENT: No signs and/or symptoms were reported regarding the EENT system. Derm: Skin is intact, is healthy with good turgor, Skin is clammy, Skin is pale, Skin temperature is cool. Musculoskeletal: No signs and/or symptoms reported regarding the musculoskeletal system. 19:20 General: Appears in no apparent distress. uncomfortable, well groomed, well developed, ao well nourished, Behavior is calm, cooperative, flat. Pain: Denies pain. Neuro: No deficits noted. Level of Consciousness is awake, alert, obeys commands, Oriented to person, place, time, situation, Appropriate for age Speech is normal. Cardiovascular: Denies chest pain, shortness of breath, Capillary refill is sluggish in bilateral fingers Chest pain is denied. Respiratory: Airway is patent Respiratory effort is even, unlabored, Respiratory pattern is regular, symmetrical, Breath sounds are clear bilaterally. GI: Abdomen is round non-distended. : Reports vaginal bleeding that is bright red, heavy flow. EENT: No signs and/or symptoms were reported regarding the EENT system. Derm: Skin is intact, Skin is clammy, Skin is pale, Skin temperature is cool. Musculoskeletal: No signs and/or symptoms reported regarding the musculoskeletal system. Reports weakness in general. Vital Signs: 18:00 BP 108 / 66; Pulse 80; Resp 16 S; Pulse Ox 98% on R/A; sg 19:50 BP 100 / 60; Pulse 75; Resp 10; Pulse Ox 100% on R/A; Pain 0/10; ao ED Course: 18:00 Inserted saline lock: 20 gauge in left antecubital area, using aseptic technique. Blood ss collected. 18:09 Patient arrived in ED. ss 18:09 Jason Estrella MD is Attending Physician. gs 18:10 Patient has correct armband on for positive identification. Placed in gown. Bed in low sg position. Call light in reach. Side rails up X2. school lunch monitor on. Pulse ox on. NIBP on. Warm blanket given. Verbal reassurance given. Head of bed elevated. 18:19 Triage completed. ss 18:23 Brandon Vora, RN is Primary Nurse. sg 18:33 Assist provider with pelvic exam: Set up pelvic tray. Performed by Jason shaw Patient tolerated well. 19:04 US Transvaginal Study (Probe) In Process Unspecified. EDMS 19:50 Patient placed in an exam room, on a stretcher, on school lunch monitor, on pulse oximetry. ao 19:51 Macy Prince MD is Hospitalizing Provider. gs 21:40 Patient admitted, IV remains in place. ao Administered Medications: 18:14 Drug: NS 0.9% 1000 ml Route: IV; Rate: 1 bolus; Site: left antecubital; ss 22:15 Follow up: Response: No adverse reaction ao 18:37 Drug: METHERgine 0.2 mg {Note: R ventrogluteal.} Route: IM; Site: Other; sg 18:46 Follow up: Response: No adverse reaction sg 22:15 Follow up: Response: No adverse reaction ao 19:37 Drug: NS 0.9% 1000 ml Route: IV; Rate: 250 ml/hr; Site: left antecubital; ao 22:15 Follow up: IV Status: Infusion continued upon admission ao 20:55 Drug: Calcium Gluconate 1 grams Route: IVPB; Infused Over: 60 mins; Site: right forearm;ao 22:15 Follow up: IV Status: Completed infusion; IV Intake: 100ml ao Intake: 22:15 IV: 100ml; Total: 100ml. ao Outcome: 19:52 Decision to Hospitalize by Provider. gs 21:40 Admitted to OR accompanied by nurse, family with patient, via stretcher, room Patient ao to go to her room after OR, Other Report given to OR nurse, Hand off care of patient who is running blood. 21:40 Condition: stable 21:40 Instructed on the need for admit. 21:42 Patient left the ED. ao Signatures: Dispatcher [employer] EDMS Brandon Vora, Amanda Nagel RN, RN RN aj Smirch, Shelby, RN RN Eleno Thorne RN RN ao Starr, Gregory, MD MD
--- NOTE | 2018-03-24 19:53 | EDPHYS ---
Physician Documentation [facility] Name: Diana Siddiqi Age: 33 yrs Sex: Female : 1985 Arrival Date: 03/24/2018 Time: 18:09 Bed 2 Private MD: ED Physician Jason Estrella HPI: 03/24 19:09 This 33 yrs old Female presents to ER via EMS with complaints of Vaginal gs Bleeding. 19:09 The patient presents with vaginal bleeding that is heavy. Onset: The symptoms/episode gs began/occurred just prior to arrival, today, HAS BEEN DX WITH MISCARRIAGE 2 WEEKS AGO, HAS HAD VB DAILY SINCE TODAY VERY HEAVY, HYPOTENSIVE PALE. Modifying factors: The symptoms are alleviated by nothing, the symptoms are aggravated by nothing. Associated signs and symptoms: Pertinent negatives: fever. Severity of symptoms: At their worst the symptoms were severe, in the emergency department the symptoms are unchanged. The patient has not experienced similar symptoms in the past. Historical: - Allergies: 18:21 ceftriaxone; ss - PMHx: 18:21 Post depression; ss - PSHx: 18:21 ; Cholecystectomy; ss - Immunization history:: Adult Immunizations unknown. - Social history:: The patient lives at home, Smoking status: Patient/guardian denies using tobacco. - Ebola Screening: : Patient negative for fever greater than or equal to 101.5 degrees Fahrenheit, and additional compatible Ebola Virus Disease symptoms Patient denies exposure to infectious person Patient denies travel to an Ebola-affected area in the 21 days before illness onset. ROS: 19:13 All other systems are negative. gs Exam: 19:13 Head/Face: Normocephalic, atraumatic. Eyes: Pupils equal round and reactive to light, gs extra-ocular motions intact. Lids and lashes normal. Conjunctiva and sclera are non-icteric and not injected. Cornea within normal limits. Periorbital areas with no swelling, redness, or edema. ENT: Nares patent. No nasal discharge, no septal abnormalities noted. Tympanic membranes are normal and external auditory canals are clear. Oropharynx with no redness, swelling, or masses, exudates, or evidence of obstruction, uvula midline. Mucous membranes moist. Neck: Trachea midline, no thyromegaly or masses palpated, and no cervical lymphadenopathy. Supple, full range of motion without nuchal rigidity, or vertebral point tenderness. No Meningismus. Chest/axilla: Normal chest wall appearance and motion. Nontender with no deformity. No lesions are appreciated. Cardiovascular: Regular rate and rhythm with a normal S1 and S2. No gallops, murmurs, or rubs. Normal PMI, no JVD. No pulse deficits. Respiratory: Lungs have equal breath sounds bilaterally, clear to auscultation and percussion. No rales, rhonchi or wheezes noted. No increased work of breathing, no retractions or nasal flaring. 19:13 MS/ Extremity: Pulses equal, no cyanosis. Neurovascular intact. Full, normal range of motion. Neuro: Awake and alert, GCS 15, oriented to person, place, time, and situation. Cranial nerves II-XII grossly intact. Motor strength 5/5 in all extremities. Sensory grossly intact. Cerebellar exam normal. Normal gait. 19:13 Constitutional: The patient appears alert, awake. 19:13 Constitutional: The patient appears in obvious distress, severely distressed. 19:13 Abdomen/GI: Palpation: moderate abdominal tenderness, in the suprapubic area, right lower quadrant and left lower quadrant. 19:13 : Pelvic Exam: Speculum exam: moderate bleeding, os that is open, tissue in cervix is seen, the nurse was present for the exam. 19:13 Skin: Appearance: Color: pale. Vital Signs: 18:00 BP 108 / 66; Pulse 80; Resp 16 S; Pulse Ox 98% on R/A; sg 19:50 BP 100 / 60; Pulse 75; Resp 10; Pulse Ox 100% on R/A; Pain 0/10; ao MDM: 18:09 Patient medically screened. gs 19:13 Data reviewed: vital signs, nurses notes. Response to treatment: the patient's symptoms gs have markedly improved after treatment. 19:28 Differential diagnosis: threatened Ab, complete Ab, retained Ab, uterine fibroids. 19:50 Physician consultation: Macy Prince MD and will see patient in OR. 03/24 18:10 Order name: CBC with Diff; Complete Time: 18:42 03/24 18:10 Order name: Basic Metabolic Panel; Complete Time: 19:42 03/24 18:10 Order name: PT-INR; Complete Time: 18:42 03/24 18:10 Order name: HCG-Quantitative; Complete Time: 19:42 03/24 18:10 Order name: Type And Screen 03/24 19:07 Order name: Antibody Screen [facility] 03/24 18:33 Order name: US Transvaginal Study (Probe); Complete Time: 19:48 gs 03/24 19:38 Order name: Packed RBC Leukored -1 [facility] 03/24 20:03 Order name: Transfuse; Complete Time: 21:41 gs Administered Medications: 18:14 Drug: NS 0.9% 1000 ml Route: IV; Rate: 1 bolus; Site: left antecubital; ss 22:15 Follow up: Response: No adverse reaction ao 18:37 Drug: METHERgine 0.2 mg {Note: R ventrogluteal.} Route: IM; Site: Other; sg 18:46 Follow up: Response: No adverse reaction sg 22:15 Follow up: Response: No adverse reaction ao 19:37 Drug: NS 0.9% 1000 ml Route: IV; Rate: 250 ml/hr; Site: left antecubital; ao 22:15 Follow up: IV Status: Infusion continued upon admission ao 20:55 Drug: Calcium Gluconate 1 grams Route: IVPB; Infused Over: 60 mins; Site: right forearm;ao 22:15 Follow up: IV Status: Completed infusion; IV Intake: 100ml ao Disposition: 03/24/18 19:52 Hospitalization ordered by Macy Prince for Observation. Preliminary diagnosis is Shock following incomplete spontaneous . - [facility]. - Status is Observation. ao - Condition is Stable. - Problem is new. - Symptoms have improved. UTI on Admission? No Critical care time excluding procedures: 19:13 Critical care time: Bedside Care: 10 minutes, Consultation: 10 minutes, Family gs Intervention: 10 minutes. Total time: 30 minutes Signatures: Dispatcher [employer] [facility] Keturah Siddiqi RN RN mw Gay, Steven, RN RN sg Smirch, Shelby, RN RN ss Ortiz, Alex, RN RN ao Starr, Gregory, MD MD Corrections: (The following items were deleted from the chart) 19:28 19:13 : Pelvic Exam: Speculum exam: moderate bleeding, os that is open, tissue in gs cervix is seen, gs 20:42 19:52 Hospitalization Ordered by Macy Prince MD for Observation. Preliminary diagnosis mw is Shock following incomplete spontaneous . Bed requested for Telemetry/MedSurg (observation). Status is Observation. Condition is Stable. Problem is new. Symptoms have improved. UTI on Admission? No. gs 21:42 20:42 03/24/2018 19:52 Hospitalization Ordered by Macy Prince MD for Observation. ao Preliminary diagnosis is Shock following incomplete spontaneous . Bed requested for [facility]. Status is Observation. Condition is Stable. Problem is new. Symptoms have improved. UTI on Admission? No. mw
[2018-03-24] MEDS ORDERED: CALCIUM GLUCONATE 1 GM IVPB 1 GM/50 ML BAG IV ONE (20:10)
--- NOTE | 2018-03-24 20:35 | P.HP ---
Certification for Inpatient Patient admitted to: Inpatient With expected LOS: <2 Midnights Patient will require the following post-hospital care: None Practitioner: I am a practitioner with admitting privileges, knowledge of patient current condition, hospital course, and medical plan of care. Services: Services provided to patient in accordance with Admission requirements found in Title 42 Section 412.3 of the Code of Federal Regulations Patient History Date of Service: 03/24/18 Reason for admission: Miscarriage History of Present Illness: 33 y.o. presents to ED for c/o worsening VB. She was diagnosed with possible miscarriage about 2 weeks ago with spotting, had heavy bleeding last week then it stopped. However, in the last night into today, she started bleeding heavily again so she come back into the ER. She denies pain or cramping. LMP: 12/28/2017, consistent with 12w2d IUP. TVUS does not show viable fetus, but thickened endometrial stripe instead. H/H: 6.9/21.4 Allergies ceftriaxone [From Rocephin] Allergy (Verified 12/19/15 19:33) Itching/Hives/Rash Home Medications: Pnv95/Ferrous Fumarate/FA [ Vitamin Tablet] 1 tab PO DAILY 07/10/16 Codeine/APAP [Tylenol W/Codeine #3 tab] 1 tab PO Q6HP PRN #45 tab 07/12/16 - Past Medical/Surgical History Diabetic: No -: GC -: BV -: Asthma - well controlled -: Lymph nodes 2000 -: -: Laparoscopic cholecystectomy - Family History Mother Notes: flavia mason - Social History Alcohol use: No CD- Drugs: No Caffeine use: No Review of Systems 10-point ROS is otherwise unremarkable Physical Examination - Physical Exam General: In no apparent distress, Oriented x3 HEENT: Atraumatic, Normocephalic Respiratory: Other (Normal effort) Cardiovascular: Normal pulses Gastrointestinal: Soft and benign, No tenderness Musculoskeletal: No swelling, No tenderness Integumentary: No rashes, No breakdown Neurological: Normal strength at 5/5 x4 extr - Studies Laboratory Data (last 24 hrs) 03/24/18 18:00: PT 12.3, INR 1.04 03/24/18 18:00: Sodium 139, Potassium 3.6, BUN 11, Creatinine 0.80, Glucose 123 H 03/24/18 18:00: WBC 4.0 L, Hgb 6.9 L*, Hct 21.4 L, Plt Count 297 Female Exam - Female Pelvic Vagina: Other (Deferred for EUA. No on-going bleeding per ER atteding's exam) Assessment and Plan - Problems (Diagnosis) (1) Retained products of conception Current Visit: Yes Status: Acute Plan: Discussed with patient need for blood transfusion, she accepts and orders have already been placed by ER attending Dr. Estrella. We reviewed medical treatment with cytotec vs D&C. Benefits, risks, and alternatives discussed. Following review, patient prefers D&C. Orders placed for procedure and dry house wheeler notified. Anesthesia and OR team to be called. Proceed when ready. Will admit o/n after procedure for monitoring. - Advance Directives Does patient have a Living Will: No Does patient have a Durable POA for Healthcare: No
[2018-03-24] MEDS ORDERED: DOXYCYCLINE 100 MG in NA CHLORIDE 0.9% 100 ML IVPB ONE (20:43)
[2018-03-24] MEDS ORDERED: NA CHLORIDE 0.9% 250 ML ONE (20:54)
[2018-03-24] MEDS ORDERED: PROPOFOL 200 MG/20 ML VIAL IV ONE (21:15)
[2018-03-24] MEDS ORDERED: MIDAZOLAM HCL 2 MG/2 ML INJ ONE (21:15)
[2018-03-24] MEDS ORDERED: LIDOCAINE 1% MPF 5 ML VIAL ONE (21:16)
[2018-03-24] MEDS ORDERED: FENTANYL CITR 100 MCG/2 ML ONE (21:16)
[2018-03-24] MEDS ORDERED: OXYTOCIN 10 UNIT/ML ML IV ONE (21:19)
[2018-03-24] MEDS ORDERED: SILVER NITRATE 1 APPL TOP ONE ×2 (21:20→23:22)
--- OUTSIDE RECORDS SUMMARY | 2018-03-24 21:27 | XMS REPORT ---
[...] NDC 0 Active not defined Sertraline HCl [facility] [id number] 100 MG Orally January 28, Active 1 tablet Once a day 2017 Results No Known Results Summary Purpose eClinicalWorks Submission
[2018-03-24] MEDS ORDERED: CODEINE 30MG/APAP 300MG TAB PO PRN (22:24)
[2018-03-24] MEDS ORDERED: KETOROLAC 30 MG/ML INJ IV ONE (22:24)
[2018-03-24] MEDS ORDERED: ONDANSETRON 4 MG/2 ML VIAL IV PRN (22:24)
[2018-03-24] MEDS ORDERED: ACETAMINOPHEN 500 MG TAB PO PRN (22:24)
[2018-03-24] MEDS ORDERED: METOCLOPRAMIDE 10 MG/2mL INJ IV PRN (22:24)
--- NOTE | 2018-03-24 22:30 | P.OP ---
Preoperative diagnosis: Spontaneous miscarriage, Retained products of conception Postoperative diagnosis: Same Primary procedure: Suction D&C Anesthesia: General with LMA Estimated blood loss: 100 cc Specimen: POC Findings: See operative report Operative Technique: FINDINGS: On bimanual exam, the patient has approximately 11-week anteverted, mobile uterus with visually dilated cervix. Few blood clots noted in the vagina. There was a moderate amount of tissue obtained on the procedure. PROCEDURE: The patient was taken to the operating room where a general anesthetic was administered. She was then positioned in the dorsal lithotomy position and prepped and draped in the normal sterile fashion. Once the anesthetic was found to be adequate, a bimanual exam was performed under anesthetic. Next, a Ocampo and right angle retractor were placed in the vagina to bring the cervix into view. The anterior lip of cervix was grasped with the tenaculum and due to the patient already being dilated approximately 2 cm, no cervical dilation was needed. A size 8 straight suction curette was used and connected to suction. It was gently advanced in the cervix and a suction curettage was performed. Two passes were made with the suction curettage. Next, a sharp curettage was performed obtaining a small amount of tissue and this was followed by third suction curettage and then a final sharp curettage was performed, which revealed a good uterine cry on all sides of the uterus. After the procedure, the tenaculum was removed. Tenaculum sites were oozing and hemostasis was achieved with pressure and use of silver nitrate. Excellent hemostasis was noted. The retractors were removed. The patient was given 0.25 mg of Methergine IM before the procedure. After the procedure, a second bimanual exam was performed and the patient's uterus had significantly decreased in size. The patient was taken from the operating room in stable condition after she was cleaned. She tolerated procedure well and there were no complications. She will be admitted to observation overnight. She was given antibiotics for prophylaxis. Complications: None Transferred to: Recovery Room Condition: Good
[2018-03-24] MEDS ORDERED: NA CHLORIDE 0.9% 1,000 ML IV SCH (23:00)
[2018-03-24] MEDS ORDERED: miSOPROStol 100 MCG TAB PO SCH (23:00)
[2018-03-24 23:03] VITALS: O2SAT 97
[2018-03-25 01:44] VITALS: BMI 28.8
[2018-03-25] MEDS ORDERED: DIPHENHYDRAMINE 50 MG/ML VIAL IV PRN (02:29)
[2018-03-25 05:03] LABS: Hematocrit 25.9 % (36.0-45.0); MCH 28.1 pg (27.0-35.0); MCV 82.1 fL (80-100); MPV 8.7 fL (7.6-11.3); RBC Red Blood Cell Count 3.15 M/uL (3.86-4.86)
[2018-03-25 06:02] LABS: BUN Blood Urea Nitrogen 6 mg/dL (7-18); Bicarbonate 23 mmol/L (21-32); Glucose Level 84 mg/dL (74-106); Potassium 3.7 mmol/L (3.5-5.1); Sodium Level 142 mmol/L (136-145)
[2018-03-25 06:20] LABS: Protime INR 1.06
[2018-03-25 07:45] LABS: Absolute Lymphocytes (CBC) 1.7 K/uL (0.7-4.9); Absolute Monocytes 0.4 K/uL (0.1-1.3); Absolute Neutrophil 3.9 K/uL (1.8-8.0); Basophils % 0.4 % (0-1.3); Eosinophils % 1.7 % (0-4.4); Hematocrit 26.6 % (36.0-45.0); Lymphocytes % 27.6 % (15.3-44.8); MCH 27.4 pg (27.0-35.0); MCV 84.4 fL (80-100); MPV 8.8 fL (7.6-11.3); Monocytes % 6.3 % (3.3-12.3); RBC Red Blood Cell Count 3.15 M/uL (3.86-4.86)
[2018-03-25] MEDS ORDERED: DOXYCYCLINE 100 MG in NA CHLORIDE 0.9% 100 ML IVPB ONE (08:00)
--- NOTE | 2018-03-25 09:25 | EKG ---
Test Date: 2018-03-24 Test Time: 21:28:00 Business And Financial Counsel: KALI MEASUREMENT RESULTS: Intervals: Rate: 80 CT: 146 QRSD: 76 QT: 374 QTc: 431 [place]: P: 52 CT: 146 QRS: 22 T: 34 INTERPRETIVE STATEMENTS: Normal sinus rhythm Low voltage QRS Borderline ECG Compared to ECG 12/20/2015 07:04:19 Sinus arrhythmia no longer present Electronically Signed On 03-25-18 09:24:28 CDT by Giovani Joya
--- NOTE | 2018-03-25 14:18 | P.PN ---
Subjective Date of Service: 03/25/18 Chief Complaint: Miscarriage Subjective: Tolerating diet, Ambulating, Improving (Denies VB or pain. Having normal spontaneous voids and feels well while ambulatory. Denies N?V), Doing well Review of Systems 10-point ROS is otherwise unremarkable Physical Examination - Vital Signs Temperature: 98.6 F Blood Pressure: 109/61 Pulse: 83 Respirations: 20 - Physical Exam General: Alert, In no apparent distress, Oriented x3 Respiratory: Clear to auscultation bilaterally, Normal air movement Cardiovascular: Normal pulses, Regular rate/rhythm, Normal S1 S2 Gastrointestinal: Normal bowel sounds, Soft and benign, No tenderness Musculoskeletal: No swelling, No tenderness Integumentary: No rashes, No breakdown Neurological: Normal speech, Normal strength at 5/5 x4 extr - Studies Laboratory Data (last 24 hrs) 03/24/18 18:00: PT 12.3, INR 1.04 03/24/18 18:00: Sodium 139, Potassium 3.6, BUN 11, Creatinine 0.80, Glucose 123 H 03/24/18 18:00: WBC 4.0 L, Hgb 6.9 L*, Hct 21.4 L, Plt Count 297 Assessment And Plan - Current Problems (Diagnosis) (1) Retained products of conception Onset Date: 03/25/18 Current Visit: Yes Status: Acute Plan: S/p suction D&C (2) S/P dilation and curettage Onset Date: 03/25/18 Current Visit: Yes Status: Acute Plan: Doing well on postop day 1. Vitals reviewed, BP on low side but her pulse is normal. Repeat H&H x2 his improved and stable. Will repeat labs this afternoon and if continued to be improved and stable, will discharge home this evening. Discharge instructions reviewed with patient in detail. She verbalized understanding agreed and is to follow up in the office in 1 week.
[2018-03-25 15:28] LABS: BUN Blood Urea Nitrogen 7 mg/dL (7-18); Bicarbonate 26 mmol/L (21-32); Glucose Level 85 mg/dL (74-106); Potassium 4.2 mmol/L (3.5-5.1); Sodium Level 141 mmol/L (136-145)
[2018-03-25 15:48] LABS: Absolute Monocytes 0.4 K/uL (0.1-1.3); Absolute Neutrophil 4.1 K/uL (1.8-8.0); Basophils % 0.7 % (0-1.3); Eosinophils % 2.8 % (0-4.4); Hematocrit 27.3 % (36.0-45.0); Lymphocytes % 17.6 % (15.3-44.8); MCH 26.8 pg (27.0-35.0); MCV 84.1 fL (80-100); MPV 9.3 fL (7.6-11.3); RBC Red Blood Cell Count 3.24 M/uL (3.86-4.86)
[2018-03-25 16:31] VITALS: BP 110/68; TEMP 98.4
== END 2018-03-25 16:44 | disposition home or self-care (01) ==
LOC: ER 18:05 → UNDOADMOB 19:55 → ERHOLD 19:55 → OR 21:24 → 2ND-WC 22:30 → OR 03-25 02:37 → 2ND-WCNRSY 03-25 02:37 → 2ND-WC 03-25 02:38
PROVIDERS: ADMIT Obstetrics & Gynecology; ATTEND Obstetrics & Gynecology
PROC: 10D17Z9 Manual Extraction of Products of Conception, Retained, Via Natural or Artificial Opening (ICD-10-PCS; 2018-03-24)
PROC: 30233N1 Transfusion of Nonautologous Red Blood Cells into Peripheral Vein, Percutaneous Approach (ICD-10-PCS; principal; 2018-03-25)
DX: O03.4 Incomplete spontaneous abortion without complication (principal)
CPT/HCPCS: 36415; 36430; 76830; 80048; 84702; 85025; 85027; 85610; 85730; 86850; 86900; 86901; 88305; 93005; 96361; 96365; 96372; 99291; 99292; J0610; J2210; J2250; J2590; J3010; J7030; P9016

== ENCOUNTER 2022-12-05 18:21 | Inpatient (IN) | payer OTHER, SELFPAY ==
--- OUTSIDE RECORDS SUMMARY | 2022-12-05 18:24 | XMS REPORT | Continuity of Care Document ---
:1985 Author Organization [facility] t Address [address] [place] [address] [place] [id number] Care Team Providers Name Role Phone Unavailable Unavailable Unavailable Problems Condition Condition Condition Status Onset Resolution Last Treating Co mments Source Name Details Category Date Date Treatment Clinician Date Cough Cough Problem Active Common [facility] History of History of Problem Active C ommon recurrent recurrent Spir it miscarriag miscarriag - [facility] es es [facility] Miscarriag Miscarriag Problem Active C ommon e e [facility] Uses Uses Problem Active C ommon control control [facility] Encounter Encounter Problem Active 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 - [facility] Johnna kes kosta pills kosta pills [facility] Reactive Reactive Problem Active Commo n depression depression Sp brina [facility] Seasonal Seasonal Problem Active Commo n allergic allergic Spirit rhinitis rhinitis - [facility] due to due to St pollen pollen [facility] Body mass Body mass Problem Active Com mon index index Spirit (BMI) of (BMI) of - [facility] 31.0-31.9 31.0-31.9 St in adult in adult [facility] Other Other Problem Active Common obesity obesity Spirit due to due to - [facility] excess excess St calories calories [facility] Well woman Well woman Problem Active C ommon exam with exam with Spir it routine routine - [facility] gynecologi gynecologi St ivon exam ivon exam [facility] Allergies, Adverse Reactions, Alerts Allergy Allergy Status Severity Reaction(s) Onset Inactive Treating Comm ents Source Name Type Date Date Clinician Rocephin Adverse Active anaphylaxis Co mmon Reaction [facility] Medications Ordered Filled Start Stop Current Ordering Indication Dosage Frequency Signature Comments Components Source Medication Medication Date Date Medication? Clinician (SIG) Name Name Sertraline Sertraline Yes Ro Sevier 1 tablet Common HCl HCl [facility] Procedures This patient has no known procedures. Encounters Start End Encounter Admission Attending Care Care Encounter Source Date/Time Date/Time Type Type Clinicians Facility Department ID 2019-01-25 2019-01-25 Outpatient Kathy Herrera [id number] Common 09:21:00 09:21:00 t [facility] it [facility] 2018-10-06 2018-10-06 Outpatient Kathy Chavezt [id number] Common 10:30:00 10:30:00 [facility] 2018-06-17 2018-06-17 Outpatient Kathy Chavezt [id number] Common 13:15:00 13:15:00 [facility] 2018-04-03 2018-04-03 Outpatient Kathy Chavezt [id number] Common 09:00:00 09:00:00 [facility] - I [facility] 2018-01-28 2018-01-28 Outpatient Kathy Chavezt [id number] Common 10:30:00 10:30:00 t [facility] it [facility] Results This patient has no known results.
[2022-12-05] MEDS ORDERED: ONDANSETRON 4 MG (ODT) TAB ONE (18:47)
--- NOTE | 2022-12-05 20:29 | RAD REPORT ---
EXAM DESCRIPTION: RAD - Chest Single View - 12/05/2022 8:06 pm CLINICAL HISTORY: FEVER Chest pain. COMPARISON: CHEST SINGLE VIEW dated 12/19/2015; CHEST SINGLE VIEW dated 11/27/2015 FINDINGS: Portable technique limits examination quality. A few mild linear opacities are seen in the left lung which may represent infection. The lungs are ot herwise clear. The heart is normal in size. No displaced fractures.
[2022-12-05] MEDS ORDERED: NA CHLORIDE 0.9% 1,000 ML ONE ×2 (20:41→22:09)
[2022-12-05] MEDS ORDERED: ONDANSETRON 4 MG/2 ML VIAL ONE ×2 (20:41→22:32)
[2022-12-05] MEDS ORDERED: FAMOTIDINE 20 MG/2 ML VIAL IV ONE (20:41)
[2022-12-05 21:02] LABS: Absolute Lymphocytes (CBC) 0.2 K/uL (0.7-4.9); Lymphocytes % 3.6 % (15.3-44.8); MCV 82.4 fL (80-100); MPV 9.1 fL (7.6-11.3); RBC Red Blood Cell Count 5.33 M/uL (3.86-4.86)
[2022-12-05 21:04] LABS: Protime INR 1.29
[2022-12-05 21:07] LABS: Urine Blood Trace-intact (Negative); Urine Glucose Trace (Negative); Urine Protein 3+ (Negative); Urine Specific Gravity >=1.030 (1.005-1.030); Urine pH 5.5 (5.0-7.0)
[2022-12-05 21:18] LABS: Albumin 3.7 g/dL (3.4-5.0); Bilirubin Total 2.3 mg/dL (0.2-1.0); Potassium 3.8 mmol/L (3.5-5.1); Protein, Total 8.5 g/dL (6.4-8.2)
[2022-12-05 21:20] LABS: Urine Specific Gravity/Preg >1.030 (1.005-1.030)
[2022-12-05 21:36] LABS: SARS-COV-2 RT PCR NEGATIVE (NEGATIVE)
[2022-12-05 21:57] LABS: Urine Bacteria None Seen /HPF (<20); Urine Mucus 4+ /HPF (None Seen)
--- NOTE | 2022-12-05 22:19 | RAD REPORT ---
EXAM DESCRIPTION: CT - Chest Abdomen Pelvis W Cont - 12/05/2022 10:06 pm CLINICAL HISTORY: Chest and abdomen pain. FEVER COMPARISON: ABDOMINAL EXAM LIMITED dated 12/19/2015; CTANGIO CHEST FOR PE dated 12/19/2015 TECHNIQUE: Approximately 100 mL nonionic IV contrast was administered to the patient. All CT scans are performed using dose optimization technique as appropriate and may include automated exposure control or mA/KV adjustment according to patient size. FINDINGS: Mild linear atelectasis is present both lung bases.No focal infiltrate typical of pneumoni a.No pleural or pericardial effusion.Mildly prominent nonspecific mediastinal lymph nodes, right keven tracheal region measuring to 13 mm, precarinal location measuring up to 14 mm.Cholecystectomy clips. The liver, spleen, pancreas, adrenal glands and right kidney are within normal limits. Several stones are present left kidney without hydronephrosis. No bowel obstruction, free air, intra-abdominal free fluid or abscess. Normal appendix. Small volume of pelvic free fluid, likely physiologic. No pathologic lymphadenopathy in the abdomen or pelvis. No worrisome osseous finding. IMPRESSION: Mildly prominent mediastinal lymph nodes are nonspecific but favored to be reactive.Cons ider imaging reassessment in 6-12 months. Left-sided renal stones without hydronephrosis.
[2022-12-06] MEDS ORDERED: NA CHLORIDE 0.9% 500 ML ONE (00:17)
--- NOTE | 2022-12-06 00:38 | P.HP ---
Certification for Inpatient Patient admitted to: Observation With expected LOS: <2 Midnights Patient will require the following post-hospital care: None Practitioner: I am a practitioner with admitting privileges, knowledge of patient current condition, hospital course, and medical plan of care. Services: Services provided to patient in accordance with Admission requirements found in Title 42 Section 412.3 of the Code of Federal Regulations Patient History Date of Service: 12/06/22 Reason for admission: Dehydration, TA, Intractable N/V/D History of Present Illness: Patient is a 37 year old female who presented to the emergency department with complaints of abdominal pain, nausea, vomiting, diarrhea, and fever x 6 days. Patient states that she went camping with her family last weekend. She also states that she recently interacted with some "dirty" water in a drain/gutter at a fire station. No one else in her family has been experiencing the same symptoms. She has been tachycardic and febrile in the ED despite IV hydration with tmax in ED of 101.4F. CT abdomen pelvis showed "Mildly prominent mediastinal lymph nodes are nonspecific but favored to be reactive. Consider imaging reassessment in 6-12 months. Left-sided renal stones without hydronephrosis." Labs are significant for sodium 129, chloride 96, BUN 19, creatinine 1.37, lactate 2.3, T. bili 2.3, AST 257, ALT 210, alk phos 212, urine with 2+ ketones, 4+ mucus, and 3+ protein. In the emergency department, she was treated with Tylenol, 2 L of fluid, IV Cipro and Flagyl. Patient is admitted for further management. Allergies ceftriaxone [From Rocephin] Allergy (Verified 12/19/15 19:33) Itching/Hives/Rash Home Medications: Sertraline HCl 100 mg PO DAILY 03/25/18 - Past Medical/Surgical History Diabetic: No -: Asthma -: Laparoscopic cholecystectomy -: x2 Psychosocial/ Personal History: Patient lives at home with her children. - Family History Family History: Reviewed- Non-Contributory - Family History Mother -: Other (see notes) Notes: ALS - Social History Smoking Status: Never smoker Alcohol use: No CD- Drugs: No Caffeine use: No Place of Residence: Home Review of Systems Gastrointestinal: Nausea, Vomiting, Abdominal Pain, Diarrhea Physical Examination - Physical Exam General: Alert, In no apparent distress HEENT: Atraumatic, EOMI, Sclerae nonicteric Neck: Supple, 2+ carotid pulse no bruit Respiratory: Clear to auscultation bilaterally, Normal air movement Cardiovascular: Regular rate/rhythm, Normal S1 S2 Gastrointestinal: Normal bowel sounds, No tenderness Musculoskeletal: No tenderness Integumentary: No rashes Neurological: Normal speech, Normal affect - Studies Laboratory Data (last 24 hrs) 12/05/22 20:30: PT 14.2 H, INR 1.29 12/05/22 20:30: Sodium 129 L, Potassium 3.8, BUN 19 H, Creatinine 1.37 H, Glucose 122 H, Total Bilirubin 2.3 H, AST 257 H, ALT 210 H, Alkaline Phosphatase 212 H 12/05/22 20:30: WBC 4.90, Hgb 15.2 H, Hct 44.0, Plt Count 170 Assessment and Plan - Problems (Diagnosis) (1) Sepsis Current Visit: Yes Status: Acute Qualifiers: Sepsis type: sepsis due to unspecified organism Sepsis acute organ dysfunction status: with acute organ dysfunction Severe sepsis acute organ dysfunction type: acute liver failure Hepatic coma status: without hepatic coma Severe sepsis shock status: without septic shock Qualified Code(s): A41.9 - Sepsis, unspecified organism; R65.20 - Severe sepsis without septic sh ock; K72.00 - Acute and subacute hepatic failure without coma (2) Dehydration Current Visit: Yes Status: Acute (3) TA (acute kidney injury) Current Visit: Yes Status: Acute (4) Traveler's diarrhea Current Visit: Yes Status: Acute - Plan Patient is admitted for further management of dehydration, TA, intractable n/v/d. Symptoms likely secondary to some form of traveler's diarrhea/contaminated water source. Patient denies drinking any water while camping but was exposed to some murky drain water at a fire station. Meeting severe sepsis criteria without septic shock with tachycardia, fever, tbili > 2, lactate > 2. BP stable. Continue aggressive IV hydration & cipro/flagyl. Stool cultures & blood cultures have been sent. Check hepatitis panel given elevated LFTs. Patient had cholecystectomy in 2016. Will also check CRP. Supportive measures with antiemetics as antipyretics. Monitor and replete electrolytes per protocol. Discharge Plan: Home Plan to discharge in: 24 Hours - Advance Directives Does patient have a Living Will: No Does patient have a Durable POA for Healthcare: No - Code Status/Comfort Care Code Status Assessed: Yes Code Status: Full Code Physician Review: Patient Assessed, Agree with Above Assessment and Plan Critical Care: No Time Spent Managing Pts Care (In Minutes): 50
[2022-12-06] MEDS ORDERED: METRONIDAZOLE 500mg IVPB 500 MG/100 ML BAG IV ONE ×2 (01:05→08:20)
[2022-12-06] MEDS ORDERED: IBUPROFEN 400 MG TAB ONE (01:05)
[2022-12-06] MEDS ORDERED: CIPROFLOXACIN 400mg IV 400 MG/200 ML BAG IV ONE ×2 (01:05→08:20)
[2022-12-06] MEDS ORDERED: LOPERAMIDE HCL 2 MG CAPSULE ONE (01:30)
[2022-12-06] MEDS: NA CHLORIDE 0.9% 1,000 ML IV SCH ×3 (01:49→20:37)
[2022-12-06] MEDS ORDERED: NA CHLORIDE 0.9% 1,000 ML ONE ×2 (01:58→11:37)
[2022-12-06 04:03] VITALS: BMI 29.1
[2022-12-06 04:28] LABS: Hepatitis B Core IgM Nonreactive (Nonreactive); Hepatitis B surface AG Interp. Nonreactive (Nonreactive); Hepatitis C Virus Ab Nonreactive (Nonreactive)
[2022-12-06 05:33] LABS: Absolute Lymphocytes (CBC) 0.2 K/uL (0.7-4.9); Hematocrit 35.9 % (36.0-45.0); Lymphocytes % 5.3 % (15.3-44.8); MCV 82.9 fL (80-100); MPV 9.2 fL (7.6-11.3); RBC Red Blood Cell Count 4.32 M/uL (3.86-4.86)
[2022-12-06 05:51] LABS: Albumin 2.6 g/dL (3.4-5.0); Bilirubin Total 2.2 mg/dL (0.2-1.0); Phosphorus 2.5 mg/dL (2.5-4.9); Potassium 3.6 mmol/L (3.5-5.1)
[2022-12-06] MEDS ORDERED: INFLUENZA VACCINE (for 6+ mo) 0.5 ML DOSE IMVAC ONE (08:00)
[2022-12-06] MEDS: CIPROFLOXACIN 400mg IV 400 MG/200 ML BAG IV SCH ×2 (08:22→20:37)
[2022-12-06] MEDS: METRONIDAZOLE 500mg IVPB 500 MG/100 ML BAG IV SCH ×2 (08:23→17:12)
[2022-12-06] MEDS: ONDANSETRON 4 MG/2 ML VIAL IV PRN (10:52)
[2022-12-06] MEDS ORDERED: ONDANSETRON 4 MG/2 ML VIAL ONE (10:55)
--- NOTE | 2022-12-06 16:53 | P.PN ---
Date of Service: 12/06/22 Patient states she feels better. She stated diarrhea frequency has reduced. No abdominal pain currently. Renal function is trending down. Plan: Continue current antibiotics Follow stool studies. Continue IV fluid.
[2022-12-06] MEDS: ACETAMINOPHEN 500 MG TAB PO PRN (20:38)
[2022-12-07] MEDS: METRONIDAZOLE 500mg IVPB 500 MG/100 ML BAG IV SCH ×3 (01:00→16:36)
[2022-12-07] MEDS: ONDANSETRON 4 MG/2 ML VIAL IV PRN ×2 (04:45→21:06)
[2022-12-07 04:48] LABS: Absolute Lymphocytes (CBC) 0.2 K/uL (0.7-4.9); Hematocrit 33.7 % (36.0-45.0); Lymphocytes % 13.6 % (15.3-44.8); MCV 82.1 fL (80-100); MPV 9.8 fL (7.6-11.3); RBC Red Blood Cell Count 4.11 M/uL (3.86-4.86)
[2022-12-07 05:10] LABS: Albumin 2.4 g/dL (3.4-5.0); Bilirubin Total 2.5 mg/dL (0.2-1.0); Magnesium 2.1 mg/dL (1.6-2.4); Potassium 3.3 mmol/L (3.5-5.1); Protein, Total 5.6 g/dL (6.4-8.2)
[2022-12-07 08:09] LABS: Blood Morphology Comment NOT SEEN (NOT SEEN); Platelet Estimate ADEQ; White Blood Cell Scan OK (OK)
[2022-12-07] MEDS: NA CHLORIDE 0.9% 1,000 ML IV SCH ×2 (08:21→19:48)
[2022-12-07] MEDS: ACETAMINOPHEN 500 MG TAB PO PRN ×2 (08:26→15:46)
[2022-12-07] MEDS: CIPROFLOXACIN 400mg IV 400 MG/200 ML BAG IV SCH (09:50)
[2022-12-07 11:54] LABS: C.diff Antigen/Toxin Ag neg : Tox neg (NEG : NEG)
[2022-12-07] MEDS: Meropenem 1,000 MG in NA CHLORIDE 0.9% 100 ML IV SCH ×2 (14:34→23:26)
--- NOTE | 2022-12-07 14:37 | P.PN ---
Subjective Date of Service: 12/07/22 Chief Complaint: Dehydration, TA, Intractable N/V/D Patient states she feels worse today. She has intermittent low-grade fever. She reports persistent dry heaving and diarrhea. She denies hematemesis, hematuria, melena or hematochezia. Physical Examination - Vital Signs Temperature: 97.6 F Blood Pressure: 103/65 Pulse: 81 Respirations: 18 Pulse Ox (%): 97 - Studies Microbiology Data (last 24 hrs): 12/06/22 00:22 Stool Rotavirus Antigen - Final 12/05/22 21:05 Clean Catch Urine [place] Count - Final <10,000 CFU/ML. 12/05/22 21:05 Clean Catch Urine - Final MIXED KOFI. Assessment And Plan - Current Problems (Diagnosis) (1) Gastroenteritis Current Visit: Yes Status: Acute (2) Elevated liver enzymes Current Visit: Yes Status: Acute (3) TA (acute kidney injury) Current Visit: Yes Status: Acute (4) Pancytopenia Current Visit: Yes Status: Acute (5) Sepsis Current Visit: Yes Status: Acute Qualifiers: Sepsis type: sepsis due to unspecified organism Sepsis acute organ dysf unction status: with acute organ dysfunction Severe sepsis acute organ dysfunction type: acute liver failure Hepatic coma status: without hepatic coma Severe sepsis shock status: without septic shock Qualified Code(s): A41.9 - Sepsis, unspecified organism; R65.20 - Severe sepsis without septic shock; K72.00 - Acute and subacute hepatic failure without coma - Plan Physical Exam General: Alert, NAD, ill looking HEENT: EOMI, Sclerae nonicteric Neck: Supple, no elevated JVD Respiratory: Clear to auscultation bilaterally, Normal air movement Cardiovascular: Regular rate/rhythm, Normal S1 S2 Gastrointestinal: Normal bowel sounds, No tenderness Musculoskeletal: No tenderness Integumentary: No rashes Neurological: Normal speech, no focal motor deficit. Plan: Patient's symptoms preceded by kayaking. Differential diagnosis for gastroenteritis, sepsis, pancytopenia and transaminitis include typhoid fever. Also need to cover for leptospirosis given history. Patient clinical condition is getting worse. We will change antibiotics to IV meropenem, IV doxycycline and Flagyl. Follow up stool studies. Stool culture. Continue supportive measures. Antiemetics as needed, antipyretic. Continue IV hydration. Monitor CBC to follow pancytopenia. TA resolved.
[2022-12-07] MEDS: KCL 20 MEQ/100 mL IVPB 20 MEQ/100 ML BAG IV SCH ×2 (15:39→16:34)
[2022-12-07] MEDS ORDERED: POTASSIUM CL SA 10 MEQ TAB PO ONE (15:59)
[2022-12-07] MEDS: CALCIUM CARBONATE CHEW 500MG TAB PO PRN (19:44)
[2022-12-07] MEDS ORDERED: DOXYCYCLINE 100 MG in NA CHLORIDE 0.9% 100 ML IVPB SCH (21:00)
[2022-12-08] MEDS: METRONIDAZOLE 500mg IVPB 500 MG/100 ML BAG IV SCH ×3 (00:53→17:44)
[2022-12-08 01:31] LABS: Absolute Lymphocytes (CBC) 0.3 K/uL (0.7-4.9); Hematocrit 32.5 % (36.0-45.0); MCV 81.9 fL (80-100); MPV 9.2 fL (7.6-11.3); RBC Red Blood Cell Count 3.97 M/uL (3.86-4.86)
[2022-12-08 01:50] LABS: Albumin 2.4 g/dL (3.4-5.0); Bilirubin Total 2.9 mg/dL (0.2-1.0); Potassium 3.7 mmol/L (3.5-5.1); Protein, Total 5.5 g/dL (6.4-8.2)
[2022-12-08] MEDS: ACETAMINOPHEN 500 MG TAB PO PRN ×3 (03:17→19:44)
[2022-12-08] MEDS: NA CHLORIDE 0.9% 1,000 ML IV SCH ×3 (03:49→19:45)
[2022-12-08] MEDS ORDERED: POTASSIUM CL SA 10 MEQ TAB PO ONE (04:07)
[2022-12-08] MEDS: ONDANSETRON 4 MG/2 ML VIAL IV PRN ×2 (04:12→12:12)
[2022-12-08] MEDS: CALCIUM CARBONATE CHEW 500MG TAB PO PRN ×3 (08:26→19:13)
[2022-12-08] MEDS ORDERED: DOXYCYCLINE 100 MG in NA CHLORIDE 0.9% 100 ML IVPB SCH (09:00)
[2022-12-08] MEDS: Meropenem 1,000 MG in NA CHLORIDE 0.9% 100 ML IV SCH (11:46)
[2022-12-08] MEDS: PROMETHAZINE INJ 25 MG/ML AMP IM PRN ×2 (14:36→19:43)
[2022-12-08 15:13] LABS: Specific Gravity 1.019 (1.005-1.030); Urine Bacteria None Seen /HPF (<20); Urine Bilirubin 1+ (Negative); Urine Blood 3+ (OVER) (Negative); Urine Clarity Clear (Clear); Urine Color Yellow (Yellow); Urine Glucose NEGATIVE (Negative); Urine Mucus Slight /HPF (None Seen); Urine Protein TRACE (Negative); Urine RBC >50 /HPF (None Seen); Urine Urobilinogen Normal (Normal); Urine pH 6.5 (5.0-7.0)
--- NOTE | 2022-12-08 16:25 | P.PN ---
Subjective Date of Service: 12/08/22 Chief Complaint: Dehydration, TA, Intractable N/V/D Patient states she feels better today. She requested we advance her diet. No issues overnight. No fever over the past 24 hours. She states the diarrhea has significantly improved. Physical Examination - Vital Signs Temperature: 98.3 F Blood Pressure: 115/77 Pulse: 67 Respirations: 18 Pulse Ox (%): 96 - Studies Microbiology Data (last 24 hrs): 12/06/22 00:22 Stool Rotavirus Antigen - Final Assessment And Plan - Current Problems (Diagnosis) (1) Gastroenteritis Current Visit: Yes Status: Acute (2) Elevated liver enzymes Current Visit: Yes Status: Acute (3) TA (acute kidney injury) Current Visit: Yes Status: Acute (4) Pancytopenia Current Visit: Yes Status: Acute (5) Sepsis Current Visit: Yes Status: Acute Qualifiers: Sepsis type: sepsis due to unspecified organism Sepsis acute organ dysfunction status: with acute organ dysfunction Severe sepsis acute organ dysfunction type: acute liver failure Hepatic coma status: without hepatic coma Severe sepsis shock status: without septic shock Qualified Code(s): A41.9 - Sepsis, unspecified organism; R65.20 - Severe sepsis without septic shock; K72.00 - Acute and subacute hepatic failure without coma - Plan Physical Exam General: Alert, NAD. HEENT: Sclerae nonicteric Neck: Supple, no elevated JVD Respiratory: Clear to auscultation bilaterally, Normal air movement Cardiovascular: Regular rate/rhythm, Normal S1 S2 Gastrointestinal: Normal bowel sounds, No tenderness Musculoskeletal: No tenderness Integumentary: No rashes Neurological: Normal speech, no focal motor deficit. Plan: Differential diagnosis for gastroenteritis, sepsis, pancytopenia and transaminitis include typhoid fever. Also need to cover for leptospirosis given her history. Also noted hematuria. Patient is clinically improving. Pancytopenia is improving. Continue IV meropenem, IV doxycycline and Flagyl. Follow up stool studies. Follow-up stool culture. C. difficile negative. Continue supportive measures. Antiemetics as needed, antipyretic. Continue IV hydration. Monitor CBC to follow pancytopenia. TA resolved.
[2022-12-08] MEDS: DOXYCYCLINE 100 MG in NA CHLORIDE 0.9% 100 ML IVPB SCH (19:44)
[2022-12-09] MEDS: Meropenem 1,000 MG in NA CHLORIDE 0.9% 100 ML IV SCH ×3 (00:08→23:41)
[2022-12-09] MEDS: METRONIDAZOLE 500mg IVPB 500 MG/100 ML BAG IV SCH ×3 (01:36→16:13)
[2022-12-09 03:49] LABS: Absolute Lymphocytes (CBC) 0.9 K/uL (0.7-4.9); Hematocrit 33.1 % (36.0-45.0); Lymphocytes % 25.9 % (15.3-44.8); MCV 82.5 fL (80-100); RBC Red Blood Cell Count 4.01 M/uL (3.86-4.86)
[2022-12-09 04:02] LABS: Albumin 2.3 g/dL (3.4-5.0); Potassium 3.6 mmol/L (3.5-5.1); Protein, Total 5.3 g/dL (6.4-8.2)
[2022-12-09] MEDS: CALCIUM CARBONATE CHEW 500MG TAB PO PRN ×2 (07:13→16:51)
[2022-12-09] MEDS: ACETAMINOPHEN 500 MG TAB PO PRN ×3 (07:13→20:53)
[2022-12-09] MEDS: PROMETHAZINE INJ 25 MG/ML AMP IM PRN ×2 (07:13→16:49)
[2022-12-09] MEDS ORDERED: POTASSIUM PHOS IN 0.9 % NACL 15 MMOL/250 ML BAG IV ONE (09:00)
--- NOTE | 2022-12-09 09:46 | P.CNS ---
Date of Consult: 12/09/22 Chief Complaint: Dehydration, TA, Intractable N/V/D History of Present Illness: Patient is a 37 year old female who presented to the emergency department with complaints of abdominal pain, nausea, vomiting, diarrhea, and fever x 6 days. Patient states that she went camping with her family last weekend. She also states that she recently interacted with some "dirty" water in a drain/gutter at a fire station. No one else in her family has been experiencing the same symptoms. She has been tachycardic and febrile in the ED despite IV hydration with tmax in ED of 101.4F. CT abdomen pelvis showed "Mildly prominent mediastinal lymph nodes are nonspecific but favored to be reactive. Consider imaging reassessment in 6-12 months. Left-sided renal stones without hydronephrosis." Labs are significant for sodium 129, chloride 96, BUN 19, creatinine 1.37, lactate 2.3, T. bili 2.3, AST 257, ALT 210, alk phos 212, urine with 2+ ketones, 4+ mucus, and 3+ protein. In the emergency department, she was treated with Tylenol, 2 L of fluid, IV Cipro and Flagyl. Patient is admitted for further management ID has been consulted for IV antibiotics recommendations and managment for traveler's diarrhea, pancytopenia Allergies ceftriaxone [From Rocephin] Allergy (Verified 12/19/15 19:33) Itching/Hives/Rash Home Medications: Calcium Carbonate [Tums Regular*] 1 tab PO PRN 12/06/22 - Past Medical/Surgical History Diabetic: No -: Asthma -: Laparoscopic cholecystectomy -: x2 Psychosocial/ Personal History: Patient lives at home with her children. - Family History Mother Medical History: Other (see notes) Notes: ALS - Social History Smoking Status: Never smoker Alcohol use: No CD- Drugs: No Caffeine use: No Place of Residence: Home Review of Systems 10-point ROS is otherwise unremarkable General: As per HPI Gastrointestinal: As per HPI Physical Examination Temp Pulse Resp BP Pulse Ox 98.3 F 65 16 108/74 97 12/09/22 08:00 12/09/22 08:00 12/09/22 08:00 12/09/22 08:00 12/09/22 08:00 General: Alert, In no apparent distress, Oriented x3 Respiratory: Normal air movement Cardiovascular: Normal S1 S2, Edema Gastrointestinal: Normal bowel sounds Musculoskeletal: No swelling, No tenderness Integumentary: No rashes, No breakdown Neurological: Normal speech, Normal tone, Sensation intact, Normal affect current medications Acetaminophen (Acetaminophen 500 Mg Tab) 1,000 mg PO Q6H PRN PRN Reason: Pain scale 2-4 (Mild) Last Admin: 12/09/22 07:13 Dose: 1,000 mg Calcium Carbonate/Glycine (Calcium Carbonate Chew 500mg Tab) 500 mg PO QID PRN PRN Reason: INDIGESTION Last Admin: 12/09/22 07:13 Dose: 500 mg Sodium Chloride (Ns 1000 Ml Ivbag) 1,000 mls @ 100 mls/hr IV .Q10H CHAPIS Last Admin: 12/08/22 19:45 Dose: 1,000 mls Metronidazole/Sodium Chloride (Flagyl 500mg/100 Ml Iv Premix) 500 mg in 100 mls @ 200 mls/hr IV Q8HR CHAPIS; Protocol Last Admin: 12/09/22 09:04 Dose: 100 mls Meropenem 1,000 mg/ Sodium (Chloride) 100 mls @ 200 mls/hr IV Q12H CHAPIS Last Admin: 12/09/22 00:08 Dose: 100 mls Doxycycline Hyclate 100 mg/ (Sodium Chloride) 100 mls @ 100 mls/hr IVPB Q12HR CHAPIS; Protocol Last Admin: 12/08/22 19:44 Dose: 100 mls Potassium Phosphate (Potassium Phos 15 Mmol/250 Ml Ns) 15 mmol in 250 mls @ 62.5 mls/hr IV 1X ONE; Protocol Stop: 12/09/22 12:59 Ondansetron HCl (Ondansetron 4 Mg/2 Ml Vial) 4 mg IV Q6HP PRN PRN Reason: NAUSEA / VOMITING Last Admin: 12/08/22 12:12 Dose: 4 mg Promethazine HCl (Promethazine Inj 25 Mg/Ml Amp) 12.5 mg IM Q6H PRN PRN Reason: NAUSEA / VOMITING Last Admin: 12/09/22 07:13 Dose: 12.5 mg Sodium Chloride (Flush Normal Saline 10 Ml) 10 ml IV BID CHAPIS Last Admin: 12/08/22 19:15 Dose: 10 ml Microbiology 12/06/22 00:22 Stool Culture & Sensitivity - Preliminary 12/06/22 00:22 Stool Rotavirus Antigen - Final 12/05/22 21:05 Clean Catch Urine [place] Count - Final <10,000 CFU/ML. 12/05/22 21:05 Clean Catch Urine - Final MIXED HAO. 12/05/22 21:00 Blood - Blood Aerobic Blood Culture - Preliminary No growth in 24 hours. 12/05/22 21:00 Blood - Blood Anaerobic Blood Culture - Preliminary No growth in 24 hours. 12/05/22 20:30 Blood - Blood Aerobic Blood Culture - Preliminary No growth in 24 hours. 12/05/22 20:30 Blood - Blood Anaerobic Blood Culture - Preliminary No growth in 24 hours. Imagings Data: CT - Chest Abdomen Pelvis W Cont - 12/05/2022 FINDINGS: Mild linear atelectasis is present both lung bases.No focal infiltrate typical of pneumonia. No pleural or pericardial effusion.Mildly prominent nonspecific mediastinal lymph nodes, right peritracheal region measuring to 13 mm, precarinal location measuring up to 14 mm.Cholecystectomy clips. The liver, spleen, pancreas, adrenal glands and right kidney are within normal limits. Several stones are present left kidney without hydronephrosis. No bowel obstruction, free air, intra-abdominal free fluid or abscess. Normal appendix. Small volume of pelvic free fluid, likely physiologic. No pathologic lymphadenopathy in the abdomen or pelvis. No worrisome osseous finding. IMPRESSION: Mildly prominent mediastinal lymph nodes are nonspecific but favored to be reactive. Consider imaging reassessment in 6-12 months. Left-sided renal stones without hydronephrosis RAD - Chest Single View - 12/05/2022 FINDINGS: Portable technique limits examination quality. A few mild linear opacities are seen in the left lung which may represent infection. The lungs are otherwise clear. The heart is normal in size. No displaced fractures - Problems (1) Traveler's diarrhea Plan: Cultures: - 12/06 Stool: Pending for culture - 12/06 Stool Ova and parasites: Pending - 12/06 Stool Rotaviurs: Negative - 12/05 UC: Mixed hao - 12/05 BC x 2: Negative Antibiotics: - Current on IV Doxycycline, Meropenem ( 12/08- ) and Metronidazole (12/06- ) Recommendations: - Continue current Doxycycline, Meropenem and Metronidazole now - ID will recommend IV antibiotic drug of choice when cultures are available (2) Pneumonia Plan: Per Chest Xray on 12/05/2022 FINDINGS: A few mild linear opacities are seen in the left lung which may represent infection. The lungs are otherwise clear. The heart is normal in size. No displaced fractures Patient currently on IV Doxycycline, Meropenem, and Metronidazole. Conclusions/Impression: - Sepsis - Dehydration - TA (acute kidney injury) - Traveler's diarrhea - Asthma ID will monitor the patient closely for signs of infection with fever and WBC trends Case has been discussed with Elena Dover Thank you Dr. Camarena for consultation
[2022-12-09] MEDS: DOXYCYCLINE 100 MG in NA CHLORIDE 0.9% 100 ML IVPB SCH ×2 (10:26→20:53)
[2022-12-09] MEDS: NA CHLORIDE 0.9% 1,000 ML IV SCH ×2 (12:05→20:55)
--- NOTE | 2022-12-09 13:15 | EKG ---
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
--- NOTE | 2022-12-09 14:00 | P.PN ---
Subjective Date of Service: 12/09/22 Chief Complaint: Dehydration, TA, Intractable N/V/D Patient states she feels about the same compared to yesterday She is tolerating solid diet. No issues overnight. No fever over the past 36 hours. She had only 1 episode of diarrhea last night. Physical Examination - Vital Signs Temperature: 98.9 F Blood Pressure: 106/65 Pulse: 60 Respirations: 16 Pulse Ox (%): 97 Assessment And Plan - Current Problems (Diagnosis) (1) Gastroenteritis Current Visit: Yes Status: Acute (2) Elevated liver enzymes Current Visit: Yes Status: Acute (3) TA (acute kidney injury) Current Visit: Yes Status: Acute (4) Pancytopenia Current Visit: Yes Status: Acute (5) Sepsis Current Visit: Yes Status: Acute Qualifiers: Sepsis type: sepsis due to unspecified organism Sepsis acute organ dysfunction status: with acute organ dysfunction Severe sepsis acute organ dysfunction type: acute liver failure Hepatic coma status: without hepatic coma Severe sepsis shock status: without septic shock Qualified Code(s): A41.9 - Sepsis, unspecified organism; R65.20 - Severe sepsis without septic shock; K72.00 - Acute and subacute hepatic failure without coma - Plan Physical Exam General: Alert, NAD. HEENT: Sclerae nonicteric Neck: Supple, no elevated JVD Respiratory: Clear to auscultation bilaterally, Normal air movement Cardiovascular: Regular rate/rhythm, Normal S1 S2 Gastrointestinal: Normal bowel sounds, No tenderness Musculoskeletal: No tenderness Integumentary: No rashes Neurological: Normal speech, no focal motor deficit. Plan: Differential diagnosis for gastroenteritis, sepsis, pancytopenia and transaminitis include typhoid fever. Also need to cover for leptospirosis given her history. Also noted hematuria. She might have gotten infection from a water bottle Patient is clinically improving. Pancytopenia is improving. Continue IV meropenem, IV doxycycline and Flagyl. Follow up stool studies. Follow-up stool culture. C. difficile negative. Continue supportive measures. Seen by infectious disease who is assisting with management. Continue IV hydration. Monitor CBC to follow pancytopenia. TA resolved. Diet as tolerated
[2022-12-09] MEDS: ONDANSETRON 4 MG/2 ML VIAL IV PRN ×2 (17:12→20:53)
[2022-12-09] MEDS: ENSURE HIGH PROTEIN 237 ML CAN PO SCH (20:53)
--- NOTE | 2022-12-09 22:16 | P.PN ---
Date of Service: 12/10/22 Subjective: felt like made improvement yesterday morning, then vomited after eating breakfast Diarrhea continues Nausea low grade fever ROS: 10 point ROS as noted above, otherwise negative Physical Exam: Gen: Alert, AOx3, uncomfortable appearing HEENT: normal conjunctiva, sclera anicteric CV: regular rate & rhythm, no edema Pulm: non-labored respirations on room air, clear bilaterally Abd: soft, m-tender, non-distended MSK: no joint tenderness Neuro: normal speech, normal affect, moves all extremities vitals reviewed Problem List: Gastroenteritis Elevated liver enzymes TA, secondary to dehydration Pancytopenia Sepsis secondary to gastrooenteritis cover for leptospirosis given her history. Also noted hematuria on IV meropenem, IV doxycycline and Flagyl LFTs worsening - alkphos up to 500s, possibly from medications biggest culprit would be doxy, then possibly flagyl discussed with ID, will dc doxy and follow check liver U/S ID consulted - will recommend IV antibiotic when cultures are complete Stool samples pending C. difficile negative Pancytopenia improving - continue to monitor CBC TA resolved Diet as tolerated Code: Full Dispo: Home ~48 hours
[2022-12-10] MEDS: METRONIDAZOLE 500mg IVPB 500 MG/100 ML BAG IV SCH ×3 (01:00→16:45)
[2022-12-10 03:51] LABS: Absolute Lymphocytes (CBC) 1.7 K/uL (0.7-4.9); Hematocrit 33.3 % (36.0-45.0); Lymphocytes % 35.5 % (15.3-44.8); MPV 9.5 fL (7.6-11.3); RBC Red Blood Cell Count 4.05 M/uL (3.86-4.86)
[2022-12-10 04:00] LABS: Albumin 2.2 g/dL (3.4-5.0); Bilirubin Total 2.6 mg/dL (0.2-1.0); Phosphorus 1.2 mg/dL (2.5-4.9); Potassium 3.5 mmol/L (3.5-5.1); Protein, Total 5.2 g/dL (6.4-8.2)
[2022-12-10] MEDS: NA CHLORIDE 0.9% 1,000 ML IV SCH ×2 (05:23→20:30)
[2022-12-10] MEDS ORDERED: KCL 20 MEQ/100 mL IVPB 20 MEQ/100 ML BAG IV SCH (06:00)
[2022-12-10] MEDS: POTASS/SODIUM PHOSPHATE 1 PKT POWD.PACK PO SCH ×3 (09:22→11:05)
[2022-12-10] MEDS: ENSURE HIGH PROTEIN 237 ML CAN PO SCH ×2 (09:24→20:30)
[2022-12-10] MEDS: DOXYCYCLINE 100 MG in NA CHLORIDE 0.9% 100 ML IVPB SCH (09:27)
--- NOTE | 2022-12-10 12:15 | RAD REPORT ---
EXAM DESCRIPTION: US - Liver Only - 12/10/2022 10:37 am CLINICAL HISTORY: eval liver, elevated LFTs, h/o cholecystectomy COMPARISON: US OB COMP W BIOPHYSCL PROFILE dated 06/22/2015 FINDINGS: The liver demonstrates diffuse fatty infiltration.Right lobe liver measures 15 cm in anter ior-posterior dimension.No focal liver lesion or intrahepatic biliary dilatation.No evidence of karlo l vein thrombosis. Spleen is slightly enlarged measuring 13 cm. IMPRESSION: Diffuse fatty liver is present.
--- NOTE | 2022-12-10 12:23 | P.PN ---
Subjective Date of Service: 12/10/22 Chief Complaint: Dehydration, TA, Intractable N/V/D Patient lying in bed stated that she vomited once after eating and had one watery soft stool x1 yesterday. Still has not much appetite today. No other major event upon examination Physical Examination - Vital Signs Temperature: 98.7 F Blood Pressure: 120/64 Pulse: 67 Respirations: 16 Pulse Ox (%): 96 - Physical Exam General: Alert, In no apparent distress, Oriented x3 Respiratory: Clear to auscultation bilaterally, Normal air movement Cardiovascular: No edema, Normal S1 S2 Gastrointestinal: Normal bowel sounds Musculoskeletal: No swelling, No tenderness Integumentary: No rashes, No breakdown Neurological: Normal speech, Normal tone, Sensation intact, Normal affect - Studies active medications Acetaminophen (Acetaminophen 500 Mg Tab) 1,000 mg PO Q6H PRN PRN Reason: Pain scale 2-4 (Mild) Last Admin: 12/09/22 20:53 Dose: 1,000 mg Calcium Carbonate/Glycine (Calcium Carbonate Chew 500mg Tab) 500 mg PO QID PRN PRN Reason: INDIGESTION Last Admin: 12/09/22 16:51 Dose: 500 mg Sodium Chloride (Ns 1000 Ml Ivbag) 1,000 mls @ 100 mls/hr IV .Q10H CHAPIS Last Admin: 12/10/22 05:23 Dose: Not Given Metronidazole/Sodium Chloride (Flagyl 500mg/100 Ml Iv Premix) 500 mg in 100 mls @ 200 mls/hr IV Q8HR CHAPIS; Protocol Last Admin: 12/10/22 09:25 Dose: 100 mls Meropenem 1,000 mg/ Sodium (Chloride) 100 mls @ 200 mls/hr IV Q12H CHAPIS Last Admin: 12/09/22 23:41 Dose: 100 mls Doxycycline Hyclate 100 mg/ (Sodium Chloride) 100 mls @ 100 mls/hr IVPB Q12HR CHAPIS; Protocol Last Admin: 12/10/22 09:27 Dose: 100 mls Nutritional Formula (Ensure High Protein 237 Ml Can) 237 ml PO BID CHAPIS Last Admin: 12/10/22 09:24 Dose: 237 ml Ondansetron HCl (Ondansetron 4 Mg/2 Ml Vial) 4 mg IV Q6HP PRN PRN Reason: NAUSEA / VOMITING Last Admin: 12/09/22 20:53 Dose: 4 mg Promethazine HCl (Promethazine Inj 25 Mg/Ml Amp) 12.5 mg IM Q6H PRN PRN Reason: NAUSEA / VOMITING Last Admin: 12/09/22 16:49 Dose: 12.5 mg Sodium Chloride (Flush Normal Saline 10 Ml) 10 ml IV BID CHAPIS Last Admin: 12/10/22 09:26 Dose: 10 ml Microbiology Data (last 24 hrs): Microbiology 12/06/22 00:22 Stool Culture & Sensitivity - Final 12/06/22 00:22 Stool Rotavirus Antigen - Final 12/05/22 21:05 Clean Catch Urine [place] Count - Final <10,000 CFU/ML. 12/05/22 21:05 Clean Catch Urine - Final MIXED HAO. 12/05/22 21:00 Blood - Blood Aerobic Blood Culture - Preliminary No growth in 24 hours. 12/05/22 21:00 Blood - Blood Anaerobic Blood Culture - Preliminary No growth in 24 hours. 12/05/22 20:30 Blood - Blood Aerobic Blood Culture - Preliminary No growth in 24 hours. 12/05/22 20:30 Blood - Blood Anaerobic Blood Culture - Preliminary No growth in 24 hours. Assessment And Plan - Current Problems (Diagnosis) (1) Traveler's diarrhea Plan: Cultures: - 12/06 Stool: Negative for Salmonella, Shigella, Campylobacter - 12/06 Stool Ova and parasites: Pending - 12/06 Stool Rotaviurs: Negative - 12/05 UC: Mixed hao - 12/05 BC x 2: Negative Antibiotics: - Current on IV Doxycycline, Meropenem ( 12/08- ) and Metronidazole (12/06- ) Recommendations: - Can STOP Doxycycline, - Continue IV Meropenem and Metronidazole now - ID will recommend IV antibiotic drug of choice when cultures are available (2) Pneumonia Plan: Per Chest Xray on 12/05/2022 FINDINGS: A few mild linear opacities are seen in the left lung which may represent infection. The lungs are otherwise clear. The heart is normal in size. No displaced fractures Patient currently on IV Meropenem, and Metronidazole. - Plan - Sepsis - Dehydration - TA (acute kidney injury) - Traveler's diarrhea: Continue Meropenem and Flagyl - Asthma - Pneumonia ID will monitor the patient closely for signs of infection with fever and WBC trends Case has been discussed with Dr. Tena N Physician Review: Patient Assessed, Agree with Above Assessment and Plan
[2022-12-10] MEDS: Meropenem 1,000 MG in NA CHLORIDE 0.9% 100 ML IV SCH ×2 (13:52→23:12)
[2022-12-10] MEDS: CALCIUM CARBONATE CHEW 500MG TAB PO PRN (16:50)
[2022-12-10] MEDS: ACETAMINOPHEN 500 MG TAB PO PRN ×2 (16:50→20:29)
[2022-12-10] MEDS: ONDANSETRON 4 MG/2 ML VIAL IV PRN (20:30)
[2022-12-11] MEDS: METRONIDAZOLE 500mg IVPB 500 MG/100 ML BAG IV SCH ×3 (00:50→16:30)
[2022-12-11] MEDS: NA CHLORIDE 0.9% 1,000 ML IV SCH (00:53)
[2022-12-11 04:23] LABS: Hematocrit 35.3 % (36.0-45.0); Lymphocytes % 28.2 % (15.3-44.8); MPV 9.2 fL (7.6-11.3)
[2022-12-11 04:34] LABS: Albumin 2.4 g/dL (3.4-5.0); Bilirubin Total 2.4 mg/dL (0.2-1.0); Potassium 3.2 mmol/L (3.5-5.1); Protein, Total 5.6 g/dL (6.4-8.2)
[2022-12-11] MEDS: KCL 20 MEQ/100 mL IVPB 20 MEQ/100 ML BAG IV SCH ×2 (05:17→08:02)
[2022-12-11 05:19] LABS: Blood Morphology Comment NOT SEEN (NOT SEEN); Platelet Estimate ADEQ
--- NOTE | 2022-12-11 07:06 | P.PN ---
Date of Service: 12/11/22 Subjective: feels slightly better than yesterday ate some breakfast this morning, waiting to see if tolerable nausea continues, no BM overnight no new or worsening symptoms ROS: 10 point ROS as noted above, otherwise negative Physical Exam: Gen: Alert, AOx3, uncomfortable appearing HEENT: normal conjunctiva, sclera anicteric CV: regular rate & rhythm, no edema Pulm: non-labored respirations on room air, clear bilaterally Abd: soft, non-tender, non-distended Skin: no rash Neuro: normal speech, normal affect, moves all extremities vitals reviewed Problem List: Gastroenteritis fever Elevated liver enzymes TA, secondary to dehydration Pancytopenia Sepsis secondary to gastrooenteritis cover for leptospirosis given her history. Also noted microscopic hematuria symptoms and was [place] river [place] recent [place] on IV meropenem Flagyl LFTs worsening - alkphos up to 500s, possibly from meds biggest culprit would be doxy, then possibly flagyl discussed with ltaoya ROMAN 12/10 and follow Liver ultrasound shows diffusive fatty infiltration and slightly enlarged spleen ova and parasites pending leptospira PCR pending C. difficile negative Pancytopenia improving TA resolved Diet as tolerated Code: Full Dispo: Home ~48 hours ID currently recommending 2 weeks total of merrem and flagyl
[2022-12-11] MEDS ORDERED: NA CHLORIDE 0.9% 1,000 ML IV SCH (07:39)
[2022-12-11] MEDS: ENSURE HIGH PROTEIN 237 ML CAN PO SCH ×2 (08:02→21:00)
[2022-12-11 08:23] LABS: Magnesium 2.1 mg/dL (1.6-2.4); Phosphorus 1.4 mg/dL (2.5-4.9)
--- NOTE | 2022-12-11 09:32 | P.PN ---
Subjective Date of Service: 12/11/22 Chief Complaint: Dehydration, TA, Intractable N/V/D Physical Examination - Vital Signs Temperature: 98.1 F Blood Pressure: 126/77 Pulse: 77 Respirations: 18 Pulse Ox (%): 97 Assessment And Plan - Current Problems (Diagnosis) (1) Traveler's diarrhea Plan: Cultures: - 12/06 Stool: Negative for Salmonella, Shigella, Campylobacter - 12/06 Stool Ova and parasites: Pending - 12/06 Stool Rotaviurs: Negative - 12/05 UC: Mixed hao - 12/05 BC x 2: Negative Antibiotics: - Had Doxycycline 12/08-12/10 - Current on IV Meropenem (12/08- ) and Metronidazole (12/06- ) Recommendations: - Continue IV Meropenem and Metronidazole now - ID will recommend IV antibiotic drug of choice when cultures are available (2) Pneumonia Plan: Per Chest Xray on 12/05/2022 FINDINGS: A few mild linear opacities are seen in the left lung which may represent infection. The lungs are otherwise clear. The heart is normal in size. No displaced fractures Patient currently on IV Meropenem, and Metronidazole. - Plan - Sepsis - Dehydration - TA (acute kidney injury) - Traveler's diarrhea: Continue Meropenem and Flagyl - Asthma - Pneumonia ID will monitor the patient closely for signs of infection with fever and WBC trends Case has been discussed with Dr. Tena, N Physician Review: Patient Assessed, Agree with Above Assessment and Plan
[2022-12-11] MEDS: Meropenem 1,000 MG in NA CHLORIDE 0.9% 100 ML IV SCH (11:14)
[2022-12-11] MEDS: POTASS/SODIUM PHOSPHATE 1 PKT POWD.PACK PO SCH ×3 (13:05→15:12)
[2022-12-11] MEDS ORDERED: POTASSIUM CL SA 10 MEQ TAB PO ONE (17:00)
[2022-12-11] MEDS: ONDANSETRON 4 MG/2 ML VIAL IV PRN (17:17)
[2022-12-11] MEDS: CALCIUM CARBONATE CHEW 500MG TAB PO PRN (21:56)
[2022-12-11 23:06] LABS: Potassium 3.6 mmol/L (3.5-5.1)
[2022-12-12] MEDS: METRONIDAZOLE 500mg IVPB 500 MG/100 ML BAG IV SCH ×3 (01:00→17:10)
[2022-12-12 03:34] LABS: Absolute Lymphocytes (CBC) 2.4 K/uL (0.7-4.9); Hematocrit 33.9 % (36.0-45.0); Lymphocytes % 29.7 % (15.3-44.8); MCV 81.4 fL (80-100); MPV 9.1 fL (7.6-11.3); RBC Red Blood Cell Count 4.16 M/uL (3.86-4.86)
[2022-12-12 03:58] LABS: Albumin 2.5 g/dL (3.4-5.0); Bilirubin Total 1.7 mg/dL (0.2-1.0); Phosphorus 2.2 mg/dL (2.5-4.9); Potassium 3.3 mmol/L (3.5-5.1); Protein, Total 5.9 g/dL (6.4-8.2)
--- NOTE | 2022-12-12 07:09 | P.PN ---
Date of Service: 12/12/22 Subjective: Feeling almost back to normal tolerating food afebrile no nausea today - reports nausea only after oral potassium yesterday no new or worsening symptoms ROS: 10 point ROS as noted above, otherwise negative Physical Exam: Gen: Alert, AOx3, NAD HEENT: normal conjunctiva, sclera anicteric CV: regular rate & rhythm, no edema Pulm: non-labored respirations on room air, clear bilaterally Abd: soft, non-tender, non-distended Skin: no rash Neuro: normal speech, normal affect, moves all extremities vitals reviewed Problem List: Gastroenteritis fever Elevated liver enzymes TA, secondary to dehydration Pancytopenia Sepsis secondary to gastrooenteritis possible leptospirosis given her history. Also noted microscopic hematuria symptoms and [place] river [place] recent [place] on IV meropenem & Flagyl LFTs worsening - alkphos up to 500s, possibly from meds - dc'd doxy, LFTs improving not atypical for leptospirosis as well Liver ultrasound shows diffusive fatty infiltration and slightly enlarged spleen ova and parasites pending leptospira PCR pending C. difficile negative Pancytopenia improving discussed treatment plan with Dr. Tena 12/12 patient has improved on merrem/flagyl, has received nearly a week of IV antibiotics afebrile for a few days, and symptoms nearly resolved completely patient is uninsured and IV antibiotics would be a large burden will trial oral ciprofloxacin and monitor over next ~24-48hrs for fever/worsening symptoms TA resolved tolerating diet Code: Full Dispo: Home ~48 hours
[2022-12-12] MEDS: ENSURE HIGH PROTEIN 237 ML CAN PO SCH ×2 (09:00→20:49)
[2022-12-12] MEDS ORDERED: POTASSIUM CL SA 10 MEQ TAB PO ONE (10:36)
[2022-12-12] MEDS: POTASS/SODIUM PHOSPHATE 1 PKT POWD.PACK PO SCH ×2 (12:04→13:12)
[2022-12-12] MEDS: Meropenem 1,000 MG in NA CHLORIDE 0.9% 100 ML IV SCH ×3 (12:09)
[2022-12-12] MEDS: CIPROFLOXACIN HCL 500 MG TAB PO SCH ×2 (13:14→20:48)
[2022-12-13] MEDS: METRONIDAZOLE 500mg IVPB 500 MG/100 ML BAG IV SCH ×3 (00:25→16:12)
[2022-12-13 05:05] LABS: Absolute Lymphocytes (CBC) 2.1 K/uL (0.7-4.9); Hematocrit 34.4 % (36.0-45.0); Lymphocytes % 28.4 % (15.3-44.8); MCV 82.1 fL (80-100); MPV 8.9 fL (7.6-11.3); RBC Red Blood Cell Count 4.18 M/uL (3.86-4.86)
[2022-12-13 05:37] LABS: Albumin 2.5 g/dL (3.4-5.0); Bilirubin Total 1.4 mg/dL (0.2-1.0); Magnesium 2.1 mg/dL (1.6-2.4); Phosphorus 2.3 mg/dL (2.5-4.9); Potassium 3.6 mEq/L (3.5-5.1); Protein, Total 6.1 g/dL (6.4-8.2)
[2022-12-13] MEDS ORDERED: POTASSIUM CL SA 10 MEQ TAB PO ONE (05:43)
[2022-12-13] MEDS: POTASS/SODIUM PHOSPHATE 1 PKT POWD.PACK PO SCH ×3 (06:01→09:33)
--- NOTE | 2022-12-13 07:00 | P.PN ---
Date of Service: 12/13/22 Subjective: Feeling better tolerating food no nausea pt seems concerned for lupus given new discovery of significant family history no new or worsening symptoms ROS: 10 point ROS as noted above, otherwise negative Physical Exam: Gen: Alert, AOx3, NAD HEENT: normal conjunctiva, sclera anicteric CV: regular rate & rhythm, no edema Pulm: non-labored respirations on room air, clear bilaterally Abd: soft, non-tender, non-distended Skin: mild redness back of left neck Neuro: normal speech, normal affect, moves all extremities vitals reviewed Problem List: Gastroenteritis, possible leptospirosis fever Elevated liver enzymes TA, secondary to dehydration Pancytopenia Sepsis secondary to gastroenteritis possible leptospirosis given her history. Also noted microscopic hematuria symptoms and was [place] river [place] recent trip initially placed on iv merrem, flagyl, doxy LFTs worsened - alkphos up to 500s, possibly from meds - dc'd doxy, LFTs improving not atypical for leptospirosis as well Liver ultrasound shows diffusive fatty infiltration and slightly enlarged spleen ova and parasites pending leptospira PCR pending C. difficile negative patient reported new discovery of significant family history of lupus - multiple family members reports h/o raynauds, malar rash years ago, 7 miscarriages, pancytopenia, transaminitis mediastinal LAD, LFTs, proteinuria, could be seen with leptospirosis vs lupus vs combo screening labs sent for lupus - could be false positive with fatty liver Pancytopenia improving discussed treatment plan with Dr. Tena 12/12 patient has improved on merrem/flagyl, has received nearly a week of IV antibiotics afebrile for a few days, and symptoms nearly resolved completely patient is uninsured and IV antibiotics would be a large burden will trial oral ciprofloxacin and monitor for fever/worsening symptoms, cipro started 12/12 TA resolved tolerating diet Code: Full Dispo: Home ~24 hours
[2022-12-13] MEDS: ENSURE HIGH PROTEIN 237 ML CAN PO SCH (09:00)
[2022-12-13] MEDS: CIPROFLOXACIN HCL 500 MG TAB PO SCH ×2 (09:33→20:43)
[2022-12-13 10:27] VITALS: O2SAT 92
[2022-12-13] MEDS: ENSURE PUDDING 4 OZ CUP PO SCH (20:44)
[2022-12-14] MEDS: METRONIDAZOLE 500mg IVPB 500 MG/100 ML BAG IV SCH (00:20)
[2022-12-14] MEDS: CALCIUM CARBONATE CHEW 500MG TAB PO PRN (01:24)
[2022-12-14 05:19] LABS: Absolute Lymphocytes (CBC) 1.9 K/uL (0.7-4.9); Hematocrit 36.8 % (36.0-45.0); Lymphocytes % 27.7 % (15.3-44.8); MCV 82.6 fL (80-100); MPV 8.3 fL (7.6-11.3); RBC Red Blood Cell Count 4.45 M/uL (3.86-4.86)
[2022-12-14 05:39] LABS: Albumin 2.8 g/dL (3.4-5.0); Bilirubin Total 1.3 mg/dL (0.2-1.0); Magnesium 2.3 mg/dL (1.6-2.4); Phosphorus 3.3 mg/dL (2.5-4.9); Protein, Total 6.4 g/dL (6.4-8.2)
[2022-12-14 07:27] VITALS: BP 114/74; TEMP 97.3
--- NOTE | 2022-12-14 07:43 | P.DS ---
Admission Date: 12/06/22 Discharge Date: 12/14/22 Disposition: ROUTINE DISCHARGE Discharge Condition: GOOD Reason for Admission: Dehydration, TA, Intractable N/V/D Consultations: Infectious Disease - Dr. Tena Brief History of Present Illness: Patient is a 37 year old female who presented to the emergency department with complaints of abdominal pain, nausea, vomiting, diarrhea, and fever x 6 days. Patient states that she went camping with her family last weekend. She also states that she recently interacted with some "dirty" water in a drain/gutter at a fire station. No one else in her family has been experiencing the same symptoms. She has been tachycardic and febrile in the ED despite IV hydration with tmax in ED of 101.4F. CT abdomen pelvis showed "Mildly prominent mediastinal lymph nodes are nonspecific but favored to be reactive. Consider imaging reassessment in 6-12 months. Left-sided renal stones without hydronephrosis." Labs are significant for sodium 129, chloride 96, BUN 19, creat inine 1.37, lactate 2.3, T. bili 2.3, AST 257, ALT 210, alk phos 212, urine with 2+ ketones, 4+ mucus, and 3+ protein. In the emergency department, she was treated with Tylenol, 2 L of fluid, IV Cipro and Flagyl. Patient is admitted for further management. Hospital Course: Problem List: fever, Gastroenteritis, possible leptospirosis Elevated liver enzymes, transient TA, secondary to dehydration Pancytopenia, resolved Sepsis secondary to gastroenteritis Patient presented with abdominal pain, fever, nausea/vomiting/diarrhea for ~1week. With recent trip to [place] and exposure to dirty / gutter water. CT chest/abd/pelvis onl y notable for mildly prominent mediastinal lymph nodes favored to be reactive. Lab work notable for TA, elevated LFTs, hyperbilirubinemia. She was empirically treated with IV meropenem, doxycycline, and Flagyl. To cover for potential leptospirosis, Rickettsia, gastroenteritis. Patient as afebrile within 48hrs, but continued for an additional day of low grade temps. During her hospitalization her LFTs initially improved shortly after admission, and then began to rise hospital day 3-4. Liver ultrasound noted fatty liver. Elevated LFTs felt to be secondary to medications, given the initial improvement. Doxycycline was discontinued, patient's LFTs and hyperbilirubinemia steadily improved. Infectious disease was consulted. There is initial consideration for continuing IV meropenem and Flagyl on discharge since patient improved on these medications and work-up was negative. After further discussion, patient was transitioned to oral ciprofloxacin for meropenem. She was monitored for 48 hours, remained afebrile, asymptomatic. She was deemed stable for discharge home with 7 more days of antibiotics, ciprofloxacin and Flagyl. Towards the end of her hospitalization, patient discovered that she has a significant family history of lupus. Also reported history of Raynaud's, malar rash when she was younger, 7 miscarriages. There is a possibility that she may have lupus and this could played a part/triggered by some infection. Initial screening work-up for lupus was ordered and sent out on 12/13. Follow-up PCP within 1 week, follow-up on screening tests, follow-up LFTs Mediastinal lymphadenopathy -favored to be reactive on CT, consider imaging reassessment in 6/12 months Vital Signs/Physical Exam: Temp Pulse Resp BP Pulse Ox 97.3 F 86 16 114/74 91 12/14/22 07:26 12/14/22 07:26 12/14/22 07:26 12/14/22 07:26 12/14/22 07:26 Physical Exam: Gen: Alert, AOx3, NAD HEENT: normal conjunctiva, sclera anicteric CV: regular rate & rhythm, no edema Pulm: non-labored respirations on room air, clear bilaterally Abd: soft, non-tender, non-distended Skin: no rashes Neuro: normal speech, normal affect, moves all extremities Laboratory Data at Discharge: WBC 7.00 thou/uL (4.3-10.9) 12/14/22 04:57 Hgb 12.3 g/dL (12.0-15.0) 12/14/22 04:57 Hct 36.8 % (36.0-45.0) 12/14/22 04:57 Plt Count 346 thou/uL (152-406) 12/14/22 04:57 PT 14.2 SECONDS (9.5-12.5) H 12/05/22 20:30 INR 1.29 12/05/22 20:30 Sodium 134 mEq/L (136-145) L 12/14/22 04:57 Potassium 4.0 mEq/L (3.5-5.1) 12/14/22 04:57 BUN 8 mg/dL (7-18) 12/14/22 04:57 Creatinine 0.64 mg/dL (0.55-1.02) 12/14/22 04:57 Glucose 132 mg/dL (74-106) H 12/14/22 04:57 Phosphorus 3.3 mg/dL (2.5-4.9) 12/14/22 04:57 Magnesium 2.3 mg/dL (1.6-2.4) 12/14/22 04:57 Total Bilirubin 1.3 mg/dL (0.2-1.0) H 12/14/22 04:57 AST 93 U/L (15-37) H 12/14/22 04:57 ALT 155 U/L (13-56) H 12/14/22 04:57 Alkaline Phosphatase 597 U/L (45-117) H 12/14/22 04:57 Home Medications: Calcium Carbonate [Tums Regular*] 1 tab PO PRN 12/06/22 Ciprofloxacin HCl 1 tab PO BID 7 Days #14 tab 12/14/22 metroNIDAZOLE [Flagyl] 1 tab PO Q8H 7 Days #21 tab 12/14/22 New Medications: Ciprofloxacin HCl 1 tab PO BID 7 Days #14 tab metroNIDAZOLE [Flagyl] 1 tab PO Q8H 7 Days #21 tab Physician Discharge Instructions: Patient presented with abdominal pain, fever, nausea/vomiting/diarrhea for ~1week. With recent trip to [place] and exposure to dirty / gutter water. CT chest/abd/pelvis onl y notable for mildly prominent mediastinal lymph nodes favored to be reactive. Lab work notable for TA, elevated LFTs, hyperbilirubinemia. She was empirically treated with IV meropenem, doxycycline, and Flagyl. To cover for potential leptospirosis, Rickettsia, gastroenteritis. Patient as afebrile within 48hrs, but continued for an additional day of low grade temps. During her hospitalization her LFTs initially improved shortly after admission, and then began to rise hospital day 3-4. Liver ultrasound noted fatty liver. Elevated LFTs felt to be secondary to medications, given the initial improvement. Doxycycline was discontinued, patient's LFTs and hyperbilirubinemia steadily improved. Infectious disease was consulted. There is initial consideration for continuing IV meropenem and Flagyl on discharge since patient improved on these medications and work-up was negative. After further discussion, patient was transitioned to oral ciprofloxacin for meropenem. She was monitored for 48 hours, remained afebrile, asymptomatic. She was deemed stable for discharge home with 7 more days of antibiotics, ciprofloxacin and Flagyl. Towards the end of her hospitalization, patient discovered that she has a significant family history of lupus. Also reported history of Raynaud's, malar rash when she was younger, 7 miscarriages. There is a possibility that she may have lupus and this could played a part/triggered by some infection. Initial screening work-up for lupus was ordered and sent out on 12/13. Follow-up PCP within 1 week, follow-up on screening tests, follow-up LFTs Mediastinal lymphadenopathy -favored to be reactive on CT, consider imaging reassessment in 6/12 months Followup: NONE,NONE [Primary Care Provider] - Time spent managing pt's care (in minutes): 45
[2022-12-14] MEDS: CIPROFLOXACIN HCL 500 MG TAB PO SCH (08:29)
[2022-12-14] MEDS: ENSURE PUDDING 4 OZ CUP PO SCH (08:30)
[2022-12-14] MEDS ORDERED: metroNIDAZOLE 500 MG TABLET PO SCH (09:00)
[2022-12-19 22:53] LABS: Anti-Cardiolipin IgA Antibody 3.1 APL-U/mL (<20.0); Phosphatidylser & Prothrom IgG <9 U (<=30); Phosphatidylser & Prothrom IgM 17 U (<=30)
== END 2022-12-14 11:20 | disposition home or self-care (01) | DRG 871 ==
LOC: ER 18:21 → ERHOLD 12-06 00:34 → OBSVTOIN 12-06 10:27 → 4TH 12-06 11:02
PROVIDERS: ADMIT Internal Medicine; ATTEND Hospitalist
DX: A41.9 Sepsis, unspecified organism (principal); J18.9 Pneumonia, unspecified organism; K72.00 Acute and subacute hepatic failure without coma; N17.9 Acute kidney failure, unspecified; D61.818 Other pancytopenia; A27.9 Leptospirosis, unspecified; R65.20 Severe sepsis without septic shock; E86.0 Dehydration; K52.9 Noninfective gastroenteritis and colitis, unspecified; E80.6 Other disorders of bilirubin metabolism; K76.0 Fatty (change of) liver, not elsewhere classified; M32.9 Systemic lupus erythematosus, unspecified; J45.909 Unspecified asthma, uncomplicated; T36.4X5A Adverse effect of tetracyclines, initial encounter; R59.1 Generalized enlarged lymph nodes; R31.29 Other microscopic hematuria; R74.01 Elevation of levels of liver transaminase levels; Z88.1 Allergy status to other antibiotic agents; Z90.49 Acquired absence of other specified parts of digestive tract; Z20.822 Contact with and (suspected) exposure to COVID-19
CPT/HCPCS: 0240U; 36415; 71045; 71260; 74177; 76705; 80048; 80053; 80074; 81001; 81003; 81015; 81025; 82947; 83516; 83605; 83735; 84100; 84132; 85025; 85610; 86038; 86140; 86225; 87040; 87045; 87046; 87086; 87088; 87177; 87209; 87324; 87425; 87798; 93005; 96361; 96365; 96366; 96367; 96375; 99285; G0378; J0744; J2185; J2405; J2550; J3480; J7030; J7040; Q0162; Q9967